=== PATIENT | male | born 1990 | race Caucasian/White ===

== ENCOUNTER → 2018-12-10 | Outpatient (CLI) | payer OTHER ==
--- NOTE | 2018-12-10 09:13 | RADIOLOGY REPORT (SQ) ---
EXAM DESCRIPTION: T SPINE AP/LAT COMPLETED DATE/TIME: 12/10/2018 9:04 am REASON FOR STUDY: PAIN IN THORACIC SPINE; UPPER AND LOWER BACK PAIN; WHEEZING R06.2 WHEEZING M54.6 PAIN IN THORACIC SPINE COMPARISON: None. NUMBER OF VIEWS: Two views. TECHNIQUE: AP and lateral radiographic images acquired of the thoracic spine. LIMITATIONS: None. FINDINGS: MINERALIZATION: Normal. ALIGNMENT: Scoliosis of the thoracic spine, apex to the right. VERTEBRAE: No fracture or bone lesion. Maintained height, normal segmentation. DISCS: No significant loss of height or significant narrowing. No large osteophytes. HARDWARE: None in the spine. MEDIASTINUM AND SOFT TISSUES: Normal heart size and aortic contour. No soft tissue abnormality. VISUALIZED LUNG KAM: Clear. OTHER: No other significant finding. IMPRESSION: 1. No acute osseous findings. 2. Mild dextroconvex scoliosis of the thoracic spine. TECHNICAL DOCUMENTATION: JOB ID: [id number] [employer]- All Rights Reserved Reading location - IP/workstation name: [email or web address]
--- NOTE | 2018-12-10 09:16 | RADIOLOGY REPORT (SQ) ---
EXAM DESCRIPTION: LUMBAR SPINE 2 VIEWS COMPLETED DATE/TIME: 12/10/2018 9:04 am REASON FOR STUDY: PAIN IN THORACIC SPINE; UPPER AND LOWER BACK PAIN; WHEEZING R06.2 WHEEZING M54.6 PAIN IN THORACIC SPINE COMPARISON: None. NUMBER OF VIEWS: Two views. TECHNIQUE: AP and lateral radiographic images acquired of the lumbar spine. LIMITATIONS: None. FINDINGS: MINERALIZATION: Normal. SEGMENTATION: Normal. No transitional anatomy. ALIGNMENT: Slight anterolisthesis of L5 on S1 is suggested. VERTEBRAE: Maintained height. No fracture or worrisome bone lesion. DISCS: Preserved height. No significant osteophytes or end plate irregularity. POSTERIOR ELEMENTS: Pedicles and facets are intact. No pars defect or posterior arch defects. HARDWARE: None in the spine. PARASPINAL SOFT TISSUES: Normal. PELVIS: Intact as visualized. No fractures or worrisome bone lesions. SI joints intact. OTHER: No other significant finding. IMPRESSION: 1. No acute osseous findings. 2. Slight anterolisthesis of L5 on S1 is suggested. TECHNICAL DOCUMENTATION: JOB ID: [id number] [email or web address]- All Rights Reserved Reading location - IP/workstation name: [email or web address]
[2018-12-10 09:57] LABS: ABSOLUTE EOSINOPHILS # (AUTO) 0.1 10^3/uL (0.0-0.6); ABSOLUTE LYMPHOCYTES (AUTO) 2.5 10^3/uL (0.5-4.7); ABSOLUTE MONOCYTES (AUTO) 0.5 10^3/uL (0.1-1.4); ABSOLUTE NEUT (AUTO) 4.2 10^3/uL (1.7-8.2); BASOPHILS % (AUTO) 0.2 % (0-2); EOSINOPHILS % (AUTO) 0.8 % (0-6); HEMATOCRIT 43.1 % (37.9-51.0); LYMPHOCYTES % (AUTO) 34.2 % (13-45); MEAN CORPUSCULAR HEMOGLOBIN 31.3 pg (27.0-33.4); MEAN CORPUSCULAR HGB CONC 34.8 g/dL (32.0-36.0); MEAN CORPUSCULAR VOLUME 90 fl (80-97); MONOCYTES % (AUTO) 7.2 % (3-13); PLATELET COUNT 301 10^3/uL (150-450); RED BLOOD COUNT 4.78 10^6/uL (4.35-5.55); RED CELL DISTRIBUTION WIDTH 13.4 % (11.5-14.0); SEGMENTED NEUTROPHILS % (AUTO) 57.6 % (42-78); TOTAL CELLS COUNTED % (AUTO) 100 %; WHITE BLOOD COUNT 7.2 10^3/uL (4.0-10.5)
[2018-12-10 10:32] LABS: ALANINE AMINOTRANSFERASE 29 U/L (21-72); ALBUMIN 4.2 g/dL (3.5-5.0); ALKALINE PHOSPHATASE 68 U/L (38-126); ANION GAP 10 (5-19); ASPARTATE AMINO TRANSFERASE 26 U/L (17-59); BILIRUBIN,DIRECT 0.3 mg/dL (0.0-0.4); BILIRUBIN,TOTAL 0.6 mg/dL (0.2-1.3); BLOOD UREA NITROGEN 11 mg/dL (7-20); CALCIUM 9.3 mg/dL (8.4-10.2); CARBON DIOXIDE 28 mmol/L (22-30); CHLORIDE 104 mmol/L (98-107); GLUCOSE 74 mg/dL (75-110); POTASSIUM 4.4 mmol/L (3.6-5.0); SODIUM 141.6 mmol/L (137-145); TOTAL PROTEIN 6.8 g/dL (6.3-8.2); TRIGLYCERIDES 207 mg/dL (<150)
[2018-12-10 10:42] LABS: DIRECT LDL 123 mg/dL (<100)
[2018-12-10 10:45] LABS: VLDL CHOLESTEROL 41.4 mg/dL (10-31)
== END ==
LOC: CCC 08:37
DX: Z00.00 Encounter for general adult medical examination without abnormal findings (principal); M41.84 Other forms of scoliosis, thoracic region; M54.6 Pain in thoracic spine; R06.2 Wheezing
CPT/HCPCS: 36415; 72070; 72100; 80053; 80061; 83036; 84443; 85025

== ENCOUNTER 2018-12-28 14:23 | Emergency (ER) | payer SELFPAY ==
[2018-12-28] MEDS ORDERED: IBUPROFEN 800 MG TABLET PO ONE (16:20)
--- NOTE | 2018-12-28 16:24 | ER Document Report ---
HPI - HPI Patient complains to provider of: Right ankle pain Time Seen by Provider: 12/28/18 16:18 Onset: Just prior to arrival Onset/Duration: Sudden Quality of pain: Achy Severity: Severe Pain Level: 5 Context: Patient presents emergency department with right ankle pain. Reports he fell down a couple steps rolled his ankle. Reports he was unable to walk afterwards. Has not taken anything for pain. Denies past medical history of injury to the ankle. Associated Symptoms: None Exacerbated by: Walking Relieved by: Denies Similar symptoms previously: No Recently seen / treated by doctor: No - MUSCULOSKELETAL Musculoskeletal: REPORTS: Extremity pain - R ankle Past Medical History - General Information source: Patient - Social History Smoking Status: Current Every Day Smoker Cigarette use (# per day): Yes Chew tobacco use (# tins/day): No Frequency of alcohol use: None Drug Abuse: None Lives with: Family Family History: None Patient has suicidal ideation: No Patient has homicidal ideation: No - Medical History Medical History: Negative Renal/ Medical History: Denies: Hx Peritoneal Dialysis Past Surgical History: Reports: Hx Herniorrhaphy, 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 IN LAST 30 DAYS: No - HEENT HEENT: Atraumatic, Normocephalic - NECK Neck: Supple - RESPIRATORY Respiratory: No Respiratory Distress - MUSCULOSKELETAL/EXTREMETIES Musculoskeletal/Extremeties: Tender - Right ankle tender to palpation lateral swelling good pedal pulse good cap refill - NEURO Level of Consciousness: Awake, Alert, Appropriate Motor/Sensory: No Motor Deficit - DERM Integumentary: Warm, Dry Adult Front & Back Diagram: 1 - +swelling, reports entire ankle pain Course - Re-evaluation Re-evalutation: 12/28/18 18:59 negative x-ray. Pt was instructed on ankle stirrup splint crutches rest ice if continued to have pain come back to the emergency department for repeat x-ray after swelling is gone down. Verbalized understanding to all instructions. Dictation of this chart was performed using voice recognition software; therefore, there may be some unintended grammatical errors. - Vital Signs Vital signs: Temp Pulse Resp BP Pulse Ox 99.4 F 109 H 20 129/79 H 97 12/28/18 14:40 12/28/18 14:40 12/28/18 14:40 12/28/18 14:40 12/28/18 14:40 - Diagnostic Test Radiology reviewed: Image reviewed, Reports reviewed - EXAM DESCRIPTION: ANKLE RIGHT COMPLETE COMPLETED DATE/TIME: 12/28/2018 4:42 pm REASON FOR STUDY: ankle pain, injury, swelling, COMPARISON: None. NUMBER OF VIEWS: Three views. TECHNIQUE: AP, lateral, and oblique radiographic images acquired of the right ankle. LIMITATIONS: None. FINDINGS: MINERALIZATION: Normal. BONES: No acute fracture or dislocation. No worrisome bone lesions. JOINTS: No effusions. SOFT TISSUES: Soft tissue swelling over the lateral malleolus. OTHER: No other significant finding. IMPRESSION: No fracture or dislocation of the right ankle. Soft tissue swelling over the lateral malleolus. Procedures - Immobilization Right Ankle Pre-Proc Neuro Vasc Exam: Normal Immobilizer type: Ankle stirrup Performed by: PCT Post-Proc Neuro Vasc Exam: Unchanged from pre-exam Discharge - Discharge Clinical Impression: Right ankle injury Condition: Stable Disposition: HOME, SELF-CARE Instructions: Ankle Stirrup Splint ([facility]), Use of Crutches ([facility]), Ice & Elevation ([facility]), Oral Narcotic Medication ([facility]) Additional Instructions: *You have been evaluated for a right ankle injury *The xray did not show an acute fracture *Rest/Ice/Elevate your ankle *Maintain the splint, Use your crutches for the next 5 days *Follow up with orthopedics for repeat xray within one week as indicated or return to the Emergency Department for continued pain *Take norco for the acute pain as prescribed *Return to ED for worsening condition, changes, needs Prescriptions: Hydrocodone/Acetaminophen [[place] 5-325 mg Tablet] 1 tab PO QID #10 tablet Forms: Return to Work Referrals: [facility] [Primary Care Provider] - Follow up as needed [facility] [Provider Group] - Follow up in 3-5 days
[2018-12-28] MEDS ORDERED: OXYCODONE-ACETAMINOPHEN 5-325 MG TABLET PO ONE (17:17)
--- NOTE | 2018-12-28 17:21 | RADIOLOGY REPORT (SQ) ---
EXAM DESCRIPTION: ANKLE RIGHT COMPLETE COMPLETED DATE/TIME: 12/28/2018 4:42 pm REASON FOR STUDY: ankle pain, injury, swelling, COMPARISON: None. NUMBER OF VIEWS: Three views. TECHNIQUE: AP, lateral, and oblique radiographic images acquired of the right ankle. LIMITATIONS: None. FINDINGS: MINERALIZATION: Normal. BONES: No acute fracture or dislocation. No worrisome bone lesions. JOINTS: No effusions. SOFT TISSUES: Soft tissue swelling over the lateral malleolus. OTHER: No other significant finding. IMPRESSION: No fracture or dislocation of the right ankle. Soft tissue swelling over the lateral ma lleolus. TECHNICAL DOCUMENTATION: JOB ID: [id number] [employer]- All Rights Reserved Reading location - IP/workstation name: [email or web address]
[2018-12-28 17:56] VITALS: BP 136/87
== END 2018-12-28 17:52 | disposition home or self-care (01) ==
LOC: ER 14:23
PROC: 2W3QX1Z Immobilization of Right Lower Leg using Splint (ICD-10-PCS; principal; 2018-12-28)
DX: S99.911A Unspecified injury of right ankle, initial encounter (principal); M25.571 Pain in right ankle and joints of right foot; F17.210 Nicotine dependence, cigarettes, uncomplicated; W10.9XXA Fall (on) (from) unspecified stairs and steps, initial encounter
CPT/HCPCS: 99283; 73610; 29515; L1902

== ENCOUNTER 2018-12-31 12:36 | Emergency (ER) | payer SELFPAY ==
[2018-12-31 12:42] VITALS: BP 145/76
[2018-12-31] MEDS ORDERED: HYDROCODONE/ACETAMINOPHEN 5-325 MG TABLET PO ONE (13:21)
[2018-12-31] MEDS ORDERED: ACETAMINOPHEN 325 MG TABLET PO ONE (13:21)
[2018-12-31] MEDS ORDERED: IBUPROFEN 600 MG TABLET PO ONE (13:21)
--- NOTE | 2018-12-31 13:21 | ER Document Report ---
HPI - HPI Time Seen by Provider: 12/31/18 12:46 Pain Level: 5 Context: Patient is a 28-year-old male who presents the emergency department with right ankle pain and swelling. On Sunday he fell down a couple of steps and rolled his ankle. His x-ray at that time was negative for any acute fracture. He was to follow-up with the [facility] and he called and they said that he needs to follow-up here in the emergency department to help with his orthoped ic follow-up referral. - ROS Notes: REVIEW OF SYSTEMS: CONSTITUTIONAL : Denies recent illness. Denies recent unintentional weight loss. Denies fever, chills, or sweats. EENT: Denies eye, ear, throat, or mouth pain, discharge, or symptoms. Denies nasal or sinus congestion. CARDIOVASCULAR: Denies chest pain. RESPIRATORY: Denies shortness of breath, cough, congestion, difficulty breathing, or wheezing. GASTROINTESTINAL: Denies nausea, vomiting, and diarrhea. Denies abdominal pain. Denies constipation. GENITOURINARY: Denies difficulty urinating, burning, blood in urine, urgency or frequency. MUSCULOSKELETAL: See HPI SKIN: Denies rash, itchiness, or lesions HEMATOLOGIC : Denies easy bruising or bleeding. LYMPHATIC: Denies swollen, painful, enlarged glands. NEUROLOGICAL: Denies no numbness or tingling denies weakness. Denies headache. Denies altered mental status. Denies alteration in speech. PSYCHIATRIC: Denies stress, anxiety, alteration in sleep patterns, or depression. All other systems reviewed and negative. 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 HEAD: Normocephalic, atraumatic. EYES: PERRL, conjunctiva normal, all extraocular movements intact, sclera nonicteric ENT: Moist mucous membranes. NECK: Supple, no noticeable swelling, redness, rash. Normal range of motion. LUNGS: Equal breath sounds bilaterally and clear to auscultation. No wheezes rales or rhonchi. CARDIOVASCULAR: S1-S2, regular rate, regular rhythm. Radial pulses 2+, normal. ABDOMEN: Normoactive bowel sounds. Soft, nontender, no guarding, no rebound tenderness, and no masses palpated. EXTREMITIES: Edema and erythema noted to right ankle and foot NEUROLOGICAL: Moves all extremities upon command. Strength 5/5 in all extremities, except right ankle. PSYCH: Normal mood, normal affect. SKIN: Warm, dry. No rash, lesions, ulcerations noted. Normal skin turgor. - INFECTION CONTROL TRAVEL OUTSIDE OF THE [place] IN LAST 30 DAYS: No Course - Re-evaluation Re-evalutation: 12/31/18 14:45 The patient has a minimal avulsion fracture to the lateral malleolus. Patient will be placed in an Silver wrap to help with the swelling. He will continue using his ankle stirrup to protect his ankle. Follow-up precautions were given. Verbal discharge instructions were given to the patient. They verbalized understanding. They are stable for discharge. - Vital Signs Vital signs: Temp Pulse Resp BP Pulse Ox 98.1 F 99 18 145/76 H 96 12/31/18 12:41 12/31/18 12:41 12/31/18 12:41 12/31/18 12:41 12/31/18 12:41 Discharge - Discharge Clinical Impression: Avulsion fracture of lateral malleolus Qualifiers: Encounter type: initial encounter Fracture type: closed Laterality: right Qualified Code(s): S82.61XA - Displaced fracture of lateral malleolus of right fibula, initial encounter for closed fracture Condition: Stable Disposition: HOME, SELF-CARE Additional Instructions: You are seen today in the emergency department for left ankle and foot pain. You do have a fracture at your ankle. Please follow-up with orthopedics in regards to this visit. You are also being provided an Silver wrap. These elevate your foot, wear your Silver wrap, apply ice, and rest as much as you can. Please use the crutches you were given from your previous visit. Please add ibuprofen 600 mg every 6 hours for your pain. You can take Tylenol 650 mg every 6 hours for your pain. The pain medication you are being provided, please only take this as needed. Prescriptions: Hydrocodone/Acetaminophen [[place] 5-325 mg Tablet] 1 tab PO QIDP PRN #10 tablet PRN Reason: Forms: Return to Work Referrals: [facility] [Primary Care Provider] - Follow up as needed SUHAIL SHAW MD [ACTIVE STAFF] - Follow up in 3-5 days
--- NOTE | 2018-12-31 14:27 | RADIOLOGY REPORT (SQ) ---
EXAM DESCRIPTION: ANKLE RIGHT COMPLETE COMPLETED DATE/TIME: 12/31/2018 2:10 pm REASON FOR STUDY: increased pain/swelling COMPARISON: None. NUMBER OF VIEWS: Three views. TECHNIQUE: AP, lateral, and oblique radiographic images acquired of the right ankle. LIMITATIONS: None. FINDINGS: MINERALIZATION: Normal. BONES: Minimal avulsion from the lateral malleolus. Mortise is intact. JOINTS: No effusions. SOFT TISSUES: Marked soft tissue swelling. No foreign body. OTHER: No other significant finding. IMPRESSION: Minimal lateral malleolar avulsion. Extensive soft tissue swelling. TECHNICAL DOCUMENTATION: JOB ID: [id number] [employer]- All Rights Reserved Reading location - IP/workstation name: [email or web address]
--- NOTE | 2018-12-31 14:28 | RADIOLOGY REPORT (SQ) ---
EXAM DESCRIPTION: FOOT RIGHT COMPLETE COMPLETED DATE/TIME: 12/31/2018 2:10 pm REASON FOR STUDY: swelling/pain COMPARISON: None. NUMBER OF VIEWS: Three views. TECHNIQUE: AP, lateral and oblique radiographic images acquired of the right foot. LIMITATIONS: None. FINDINGS: MINERALIZATION: Normal. BONES: No acute fracture or dislocation. No worrisome bone lesions. JOINTS: No effusions. SOFT TISSUES: No soft tissue swelling. No foreign body. OTHER: No other significant finding. IMPRESSION: NEGATIVE STUDY OF THE RIGHT FOOT. NO RADIOGRAPHIC EVIDENCE OF ACUTE INJURY. TECHNICAL DOCUMENTATION: JOB ID: [id number] [employer]- All Rights Reserved Reading location - IP/workstation name: [email or web address]
== END 2018-12-31 14:49 | disposition home or self-care (01) ==
LOC: ER 12:36
DX: S82.61XA Displaced fracture of lateral malleolus of right fibula, initial encounter for closed fracture (principal); M25.571 Pain in right ankle and joints of right foot; W10.9XXA Fall (on) (from) unspecified stairs and steps, initial encounter; F17.200 Nicotine dependence, unspecified, uncomplicated
CPT/HCPCS: 99283

== ENCOUNTER 2019-01-04 12:46 | Emergency (ER) | payer SELFPAY ==
[2019-01-04] MEDS ORDERED: HYDROCODONE/ACETAMINOPHEN 5-325 MG TABLET PO ONE (13:08)
--- NOTE | 2019-01-04 13:08 | ER Document Report ---
HPI - HPI Patient complains to provider of: Ankle pain Time Seen by Provider: 01/04/19 13:00 Onset: Other Onset/Duration: Persistent Severity: Severe Pain Level: 5 Context: Patient presents emergency department with complaints of right ankle pain. Patient reports on December 28 he was evaluated for a fracture but the x-ray was read negative. He returned 3 days later and they did another x-ray which showed an avulsion fracture. The next day he saw Dr. Gonzales and was placed in an air boot. He reports he has been keeping his leg up using crutches but is having more pain. Denies bumping or falling since he had the Aircast boot placed. Reports Dr. Gonzales prescribed him Mobic but is not helping the pain. No other symptoms such as fever vomiting diarrhea. Associated Symptoms: None Exacerbated by: Denies Relieved by: Denies Similar symptoms previously: Yes Recently seen / treated by doctor: Yes - EENT EENT: DENIES: Sore Throat - CARDIOVASCULAR Cardiovascular: DENIES: Chest pain - GASTROINTESTINAL Gastrointestinal: DENIES: Abdominal Pain - MUSCULOSKELETAL Musculoskeletal: REPORTS: Extremity pain - right foot/ankle Past Medical History - General Information source: Patient - Social History Smoking Status: Current Every Day Smoker Chew tobacco use (# tins/day): No Frequency of alcohol use: None Drug Abuse: None Lives with: Family Family History: None Patient has suicidal ideation: No Patient has homicidal ideation: No - Medical History Medical History: Negative Renal/ Medical History: Denies: Hx Peritoneal Dialysis Past Surgical History: Reports: Hx Herniorrhaphy, 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 IN LAST 30 DAYS: No - HEENT HEENT: Atraumatic, Normocephalic - NECK Neck: Supple - RESPIRATORY Respiratory: No Respiratory Distress - CARDIOVASCULAR Cardiovascular: Regular Rate - MUSCULOSKELETAL/EXTREMETIES Musculoskeletal/Extremeties: Tender - right lateral ankle ttp, foot slightly swollen, good cap refill, good pedal pulse - NEURO Level of Consciousness: Awake, Alert, Appropriate Motor/Sensory: No Motor Deficit - DERM Integumentary: Warm, Dry Course - Re-evaluation Re-evalutation: 01/04/19 CT results showed avulsion fracture. No further injuries. Patient was instructed on results. He reapplied his own Aircast boot. He was instructed to follow-up with Dr. Gonzales on Sunday. Prescribed some King for pain. He verbalized understanding to all instructions. Dictation of this chart was performed using voice recognition software; therefore, there may be some unintended grammatical errors. - Vital Signs Vital signs: Temp Pulse Resp BP Pulse Ox 98.2 F 86 18 128/76 H 97 01/04/19 12:51 01/04/19 12:51 01/04/19 12:51 01/04/19 12:51 01/04/19 12:51 - Diagnostic Test Radiology reviewed: Image reviewed, Reports reviewed - EXAM DESCRIPTION: CT RT LOWER EXTREMITY WITHOUT COMPLETED DATE/TIME: 01/04/2019 1:18 pm REASON FOR STUDY: hx fx increased pain COMPARISON: Right ankle films 12/28/2018, 12/31/2018 Right foot three views 12/31/2018 TECHNIQUE: CT scan of the right ankle performed without intravenous or oral contrast. Images reviewed with soft tissue and bone windows. Reconstructed coronal and sagittal MPR images reviewed. All images stored on PACS. All CT scanners at this facility use dose modulation, iterative reconstruction, and/or weight based dosing when appropriate to reduce radiation dose to as low as reasonably achievable (ALARA). [facility]: Dose Right [facility]: CareDose [facility]: Dose Right [facility]: Teradose 4D [facility]: [employer] RADIATION DOSE: CT Rad equipment meets quality standard of care and radiation dose reduction techniques were employed. CTDIvol: 4.1 mGy. DLP: 92 mGy-cm. mGy. LIMITATIONS: None. FINDINGS: Non contrasted CT of the right ankle was performed. Again, 2 tiny avulsion fragments are present along the lateral aspect of the talus and calcaneus from fibulocalcaneal ligament avulsion. This is best shown on coronal image 29, axial image 50. This correlates with plain films from 12/31/2018. No disruption of the ankle mortise. No other fractures are identified. There is lateral soft tissue swelling. Tiny plantar calcaneal spur. L IMPRESSION: 2 tiny avulsion fragments are present along the lateral aspect of the talus and calcaneus from Fibulocalcaneal ligament avulsion. This is unchanged from plain films 12/31/2018. TECHNICAL DOCUMENTATION: JOB ID: [id number] Quality ID # [id number]: Final reports with documentation of one or more dose reduction techniques (e.g., Automated exposure control, adjustment of the mA and/or kV according to patient size, use of iterative reconstruction technique) 2010 [employer]- All Rights Reserved Reading location - IP/workstation name: [email or web address] Dictated by: JEEVAN SUNSHINE MD [id number] CC: PRASANNA GONZALES NP > Discharge - Discharge Clinical Impression: Avulsion fracture of lateral malleolus Qualifiers: Encounter type: sequela Fracture type: closed Laterality: right Qualified Code(s): S82.61XS - Displaced fracture of lateral malleolus of right fibula, sequela Condition: Stable Disposition: HOME, SELF-CARE Instructions: Avulsion Fracture of the Ankle ([facility]), Oral Narcotic Medication ([facility]) Additional Instructions: *You have been evaluated for an avulsion fracture of the right ankle *Maintain the boot *Use your crutches *Follow up with Dr. Gonzales on Sunday for recheck *Take medication as prescribed- take norco for acute pain *Return to ED for worsening condition, changes, needs Prescriptions: Hydrocodone/Acetaminophen [King 5-325 mg Tablet] 1 tab PO QID #15 tablet Forms: Return to Work Referrals: [facility] [Primary Care Provider] - Follow up as needed
--- NOTE | 2019-01-04 13:49 | RADIOLOGY REPORT (SQ) ---
EXAM DESCRIPTION: CT RT LOWER EXTREMITY WITHOUT COMPLETED DATE/TIME: 01/04/2019 1:18 pm REASON FOR STUDY: hx fx increased pain COMPARISON: Right ankle films 12/28/2018, 12/31/2018 Right foot three views 12/31/2018 TECHNIQUE: CT scan of the right ankle performed without intravenous or oral contrast. Images review ed with soft tissue and bone windows. Reconstructed coronal and sagittal MPR images reviewed. All i mages stored on PACS. All CT scanners at this facility use dose modulation, iterative reconstruction, and/or weight based d osing when appropriate to reduce radiation dose to as low as reasonably achievable (ALARA). [facility]: Dose Right [facility]: CareDose [facility]: Dose Right [facility]: Teradose 4D [facility]: [employer] RADIATION DOSE: CT Rad equipment meets quality standard of care and radiation dose reduction techniq ues were employed. CTDIvol: 4.1 mGy. DLP: 92 mGy-cm. mGy. LIMITATIONS: None. FINDINGS: Non contrasted CT of the right ankle was performed. Again, 2 tiny avulsion fragments are present along the lateral aspect of the talus and calcaneus from fibulocalcaneal ligament avulsion. This is best shown on coronal image 29, axial image 50. This co rrelates with plain films from 12/31/2018. No disruption of the ankle mortise. No other fractures are identified. There is lateral soft tissue swelling. Tiny plantar calcaneal spur. L IMPRESSION: 2 tiny avulsion fragments are present along the lateral aspect of the talus and calcaneu s from Fibulocalcaneal ligament avulsion. This is unchanged from plain films 12/31/2018. TECHNICAL DOCUMENTATION: JOB ID: [id number] Quality ID # [id number]: Final reports with documentation of one or more dose reduction techniques (e.g., Au tomated exposure control, adjustment of the mA and/or kV according to patient size, use of iterative reconstruction technique) 2010 [employer]- All Rights Reserved Reading location - IP/workstation name: [email or web address]
[2019-01-04 14:05] VITALS: BP 128/79
== END 2019-01-04 14:04 | disposition home or self-care (01) ==
LOC: ER 12:46
DX: S82.61XS Displaced fracture of lateral malleolus of right fibula, sequela (principal); M25.571 Pain in right ankle and joints of right foot; X58.XXXS Exposure to other specified factors, sequela; F17.200 Nicotine dependence, unspecified, uncomplicated
CPT/HCPCS: 99283

== ENCOUNTER 2019-01-09 14:21 | Emergency (ER) | payer SELFPAY ==
[2019-01-09 14:29] VITALS: BP 137/77
[2019-01-09] MEDS ORDERED: HYDROCODONE/ACETAMINOPHEN 5-325 MG TABLET PO ONE (15:11)
--- NOTE | 2019-01-09 15:15 | ER Document Report ---
HPI - HPI Time Seen by Provider: 01/09/19 14:53 Pain Level: 4 Context: Patient is a 28-year-old male who presents to the emergency department with a chief complaint of right ankle pain. Patient states a few weeks ago he was diagnosed with a avulsion fracture to the right ankle. Patient states he has seen Dr. Gonzales since then and was placed in a hard walking boot. Patient states he was given anti-inflammatories and was told to follow-up in 1 month. Patient states he does have some swelling to the right ankle which has improved since the original injury. She states around 1 PM this afternoon he was walking back into his house from smoking a cigarette when he tripped up some wooden stairs. Patient states he did strike the front of his left ankle. Patient states he did have the hard walking boot on at that time. The walking boot does cover the ankle and anterior and posterior foot. Patient states since then he has been extreme pain. She denies any new bruising or new swelling. - CONSTITUTIONAL Constitutional: DENIES: Fever, Chills - EENT EENT: DENIES: Sore Throat, Ear Pain, Eye problems - NEURO Neurology: DENIES: Headache, Weakness, Vision blurred, Dizzinesss / Vertigo - CARDIOVASCULAR Cardiovascular: DENIES: Chest pain - RESPIRATORY Respiratory: DENIES: Trouble Breathing, Coughing - GASTROINTESTINAL Gastrointestinal: DENIES: Abdominal Pain, Black / Bloody Stools - URINARY Urinary: DENIES: Dysuria, Urgency, Frequency - MUSCULOSKELETAL Musculoskeletal: REPORTS: Extremity pain - RIGHT ANKLE Past Medical History - General Information source: Patient - Social History Smoking Status: Current Every Day Smoker Chew tobacco use (# tins/day): No Frequency of alcohol use: None Drug Abuse: None Family History: None Patient has suicidal ideation: No Patient has homicidal ideation: No - Past Medical History Cardiac Medical History: Reports: None Pulmonary Medical History: Reports: None EENT Medical History: Reports: None Neurological Medical History: Reports: None Endocrine Medical History: Reports: None Renal/ Medical History: Reports: None. 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 HEAD: Atraumatic, normocephalic. EYES: Pupils equal round and reactive to light, extraocular movements intact, sclera anicteric, conjunctiva are normal. ENT: TMs normal, nares patent, oropharynx clear without exudates. Moist mucous membranes. NECK: Normal range of motion, supple without lymphadenopathy or JVD. LUNGS: Breath sounds clear to auscultation bilaterally and equal. No wheezes rales or rhonchi. HEART: Regular rate and rhythm without murmurs, rubs or gallops. ABDOMEN: Soft, nontender, normoactive bowel sounds. No guarding, no rebound. No masses appreciated. BACK: No cervical, thoracic, lumbar midline tenderness. No saddle anesthesia, normal distal neurovascular exam. GENITOURINARY: Deferred. EXTREMITIES: Normal range of motion, strong +2 right dorsalis pedis pulse, + 2 posterior tibial pulse, small amount of edema noted to the medial and lateral aspect of the right ankle. There is no ecchymosis or erythema. PROM performed with pain. She does have a hard cushioned walking boot in place. This was removed for evaluation of the injury. NEUROLOGICAL: Cranial nerves II through XII grossly intact. Normal speech, normal gait. PSYCH: Normal mood, normal affect. SKIN: Warm, Dry, normal turgor, no rashes or lesions noted. - INFECTION CONTROL TRAVEL OUTSIDE OF THE [place] IN LAST 30 DAYS: No Course - Re-evaluation Re-evalutation: 01/09/19 15:15 Patient has a known avulsion fracture to the right ankle in which she does take NSAIDs and wears a hard walking boot for comfort. Since patient did have a new injury and is complaining of worsening ankle pain I will obtain an x-ray. If there is no injury I plan to keep the patient in his walking boot and to follow- up with Dr. Gonzales. Continue NSAIDs as previously prescribed. I will give patient pain medication while in the emergency department. 01/09/19 16:00 Patient's x-ray shows an avulsion fracture of the right ankle which was present in previous x-ray and there is no new acute finding. Patient will continue using the walking boot, taking the prescribed NSAIDs by Dr. Gonzales and close follow up with Orthopedic. - Vital Signs Vital signs: Temp Pulse Resp BP Pulse Ox 98.1 F 102 H 18 137/77 H 98 01/09/19 14:28 01/09/19 14:28 01/09/19 14:28 01/09/19 14:28 01/09/19 14:28 Discharge - Discharge Clinical Impression: Avulsion fracture of ankle Qualifiers: Encounter type: subsequent encounter Fracture type: closed Laterality: right Fracture healing: with routine healing Qualified Code(s): S82.891D - Other fracture of right lower leg, subsequent encounter for closed fracture with routine healing Condition: Stable Disposition: HOME, SELF-CARE Additional Instructions: Today you were seen in the emergency department for a ankle reinjury. The repeat x-ray showed an avulsion injury of the right malleolus which was seen in the previous imaging on December 31. There does not appear to be any significant changes lateral. There is soft tissue swelling noted. Please continue to wear the hard walking boot that was provided by your orthopedic as well as taking the anti-inflammatories. Please return to the emergency department for worsening signs and symptoms such as new bruising, significant increase in swelling, redness to the foot or ankle that starts to streak up the leg or any other concerning signs or symptoms. Avulsion Fracture of the Ankle There is a small chip fracture in your ankle. This fracture was caused by stretching the joint ligaments, which pulled off a small piece of bone. This injury is treated much the same as a severe sprain. At first, you should elevate, rest, and apply ice packs to the leg. Often, only an ankle brace or tape is necessary while the chip fracture heals. Sometimes a chip fracture of this type requires a cast or walking boot. The treatment plan may change, depending on how your ankle progresses. Chip fractures usually do not fuse back onto the bone, but rather scar down to the bone surface. You will most likely see this bone fragment on future x-ra ys. It's important that you follow the treatment program as outlined for now, then follow up for re-evaluation as scheduled. Call the doctor or return at once if pain or swelling becomes severe, or if you develop other unusual symptoms. Referrals: [facility] [NO LOCAL MD] - Follow up as needed
--- NOTE | 2019-01-09 15:52 | RADIOLOGY REPORT (SQ) ---
EXAM DESCRIPTION: ANKLE RIGHT COMPLETE COMPLETED DATE/TIME: 01/09/2019 3:36 pm REASON FOR STUDY: reinjured right ankle COMPARISON: 12/31/2018 NUMBER OF VIEWS: Three views. TECHNIQUE: AP, lateral, and oblique radiographic images acquired of the right ankle. LIMITATIONS: None. FINDINGS: MINERALIZATION: Normal. BONES: Avulsion injury of the lateral malleolus is again noted. It did not appear significantly hyatt ged from prior study. No additional findings. JOINTS: No effusions. SOFT TISSUES: There is soft tissue swelling. OTHER: No other significant finding. IMPRESSION: Avulsion injury of the lateral malleolus is again noted. No significant changes from pr ior study. Soft tissue swelling is again noted. TECHNICAL DOCUMENTATION: JOB ID: [id number] [employer]- All Rights Reserved Reading location - IP/workstation name: [email or web address]
== END 2019-01-09 16:07 | disposition home or self-care (01) ==
LOC: ER 14:21
DX: S82.891D Other fracture of right lower leg, subsequent encounter for closed fracture with routine healing (principal); M25.571 Pain in right ankle and joints of right foot; M79.89 Other specified soft tissue disorders; W18.40XD Slipping, tripping and stumbling without falling, unspecified, subsequent encounter; F17.210 Nicotine dependence, cigarettes, uncomplicated
CPT/HCPCS: 99283

== ENCOUNTER 2019-02-15 15:16 | Emergency (ER) | payer SELFPAY ==
--- NOTE | 2019-02-15 16:28 | ER Document Report ---
HPI - HPI Patient complains to provider of: ruq abd pain Time Seen by Provider: 02/15/19 16:06 Quality of pain: Sharp Severity: Moderate Pain Level: 3 Context: 28 yr old male pt with the listed pmh, here for ruq abdominal pain for 1 day shortly after eating buranny villalpando. states he was helping someone to move furniture after eating and the pain came on. denies any trauma or injury or moving awkwardly or pulling anything to account for his sx. no hx of diabetes or asthma. normal bms. no uti sx. no testicular pain/swelling, penile dc/rash/lesions, or concerns for stds. denies swelling or hx of hernias. 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 no recent abx or steroids. hasn't taken anything for sx. no hx of gerd, gb dz, pancreatitis, gi bleed, ulcers, ibs, or crohns. no hx of this before. no sick contacts. no uri sx. no rash. no excessive nsaid use or etoh. no recent illness. pain is worse with eating. denies changes in color or caliber of stool. no other associated sx. Associated Symptoms: None Exacerbated by: Food Relieved by: Remaining still Similar symptoms previously: No Recently seen / treated by doctor: No - ROS Systems Reviewed and Negative: Yes All other systems reviewed and negative - to include 10 systems, unless mentioned in the hpi - DERM Skin Color: Normal Past Medical History - General Information source: Patient - Social History Smoking Status: Current Every Day Smoker Frequency of alcohol use: None Drug Abuse: None Family History: None Patient has suicidal ideation: No Patient has homicidal ideation: No Endocrine Medical History: Reports: None Renal/ Medical History: Denies: Hx Kidney Stones, Hx Peritoneal Dialysis GI Medical History: Reports: None Past Surgical History: Reports: Hx Bowel Surgery - 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 Pleasant, mildly obese young male, smiling, speaking in full sentences, easily sitting up, in no sign of resp distress, nontoxic, appears uncomfortable but not toxic. VITALS: reviewed, see vital signs table. HEAD: normocephalic. atraumatic. no loera signs. no raccoon eyes. EYES: PERRL, EOMI, (-)scleral icterus. NOSE: no_nasal_discharge. MOUTH: (-)decreased moisture. THROAT: no_tonsilar_inflammation/hypertrophy/exudate. no lymphadenopathy NECK: supple, no_neck_tenderness, full rom. full strength. no meningeal signs. BACK: no_back_tenderness. CHEST_WALL: no_chest_tenderness. LUNGS: no_wheezing, (-)accessory muscle use, good air exchange bilateral. HEART: normal_rate, normal_rhythm,, ABDOMEN: normal_BS, soft, abdomen-diffuse, mild-mod ttp in the ruq, (- )guarding, (-)rebound, no distension or peritoneal signs. questionable murphys. neg mcburneys. neg heel strike. neg obturator. neg psoas. neg rovsign. no cva tenderness GENITALS: deferred RECTAL: deferred EXTREMITIES: strength 5/5 in all_extremities, good pulses in all_extremities, no_edema, no_swelling\tenderness. full rom. normal gait. brisk cap refill. good hand senior net developer. SKIN: warm, dry, good_color, no rash. no grossly visible overlying skin hyatt ges to suggest trauma unless otherwise noted. NEURO: motor_intact, sensory_intact. cranial nerves 2-12 intact, MENTAL_STATUS: normal_affect, speech_clear, oriented_X_3, responds_appropriately to questions. - INFECTION CONTROL TRAVEL OUTSIDE OF THE [place] IN LAST 30 DAYS: No Course - Re-evaluation Re-evalutation: pt here for for some ruq abd pain after eating [employer]. labs notable for a mild leukocytosis but were otherwise neg. exam concerning for gb so a gb us was done and was neg per rad and reviewed by myself. sx could be from biliary colic. informed pt he may benefit from a hida scan to further investigate and work up his sx via gi. he responded well to tx listed. serial abd exams remain benign. advised bland diet. otc meds for pain. drink plenty of fluids. advised to f/u with pcp/gi in 1-2 days. return for any worsening symptoms. vss. well appearing. satting well on ra. pt understands and agrees to plan. On reexam, pt improved with tx listed. remained stable. nontoxic. well appearing. pain controlled. tolerating po. requesting to go home. serial abd exams remain benign Documentation achieved through voice recording which my lead to some occasional accidental typographical errors. Extensive efforts have been made to proof read documentation to make sure these are the least as possible. Category Date Time Status Gallbladder Ultrasound [U/S ABDOMEN LIMITED W/O DOP] [ Exams 02/15/19 16:52 Completed US] Stat CBC WITH DIFF [HEME] Stat Lab 02/15/19 16:39 Completed COMPREHENSIVE METABOLIC PANEL [CHEM] Stat Lab 02/15/19 16:39 Completed LIPASE [CHEM] Stat Lab 02/15/19 16:39 Completed URINALYSIS [URIN] Stat Lab 02/15/19 17:55 Completed Morphine Sulfate [Morphine 10 mg/ml Inj] Med 02/15/19 16:51 Discontinued 4 mg IV NOW ONE Normal Saline 1000 ml [NaCl 0.9% 1000 ml IV Soln] 1,000 Med 02/15/19 16:51 Discontinued ml IV BOLUS Ondansetron HCl/Pf [Zofran Inj/Pf 4 mg/2 ml Sdv] Med 02/15/19 16:51 Discontinued 4 mg IV NOW ONE - Vital Signs Vital signs: Temp Pulse Resp BP Pulse Ox 97.6 F 79 16 127/77 H 97 02/15/19 15:25 02/15/19 15:25 02/15/19 15:25 02/15/19 15:25 02/15/19 15:25 Temp Pulse Resp BP Pulse Ox 02/15/19 18:52 97.3 F 70 16 123/78 100 02/15/19 15:25 97.6 F 79 16 127/77 H 97 - Laboratory Result Diagrams: 02/15/19 16:39 02/15/19 16:39 Laboratory results interpreted by me: Labs- Entire Visit 02/15/19 02/15/19 02/15/19 16:39 16:39 16:39 WBC 11.6 H RBC 4.72 Hgb 14.5 Hct 42.8 MCV 91 MCH 30.7 MCHC 33.9 RDW 13.3 Plt Count 311 Seg Neutrophils % 69.8 Lymphocytes % 23.1 Monocytes % 6.4 Eosinophils % 0.4 Basophils % 0.3 Absolute Neutrophils 8.1 Absolute Lymphocytes 2.7 Absolute Monocytes 0.7 Absolute Eosinophils 0.0 Absolute Basophils 0.0 Sodium 142.5 Potassium 4.4 Chloride 107 Carbon Dioxide 27 Anion Gap 9 BUN 9 Creatinine 0.81 Est GFR ( Amer) > 60 Est GFR (Non-Af Amer) > 60 Glucose 81 Calcium 9.6 Total Bilirubin 0.4 Direct Bilirubin 0.2 Neonat Total Bilirubin Not Reportable Neonat Direct Bilirubin Not Reportable Neonat Indirect Bili Not Reportable AST 26 ALT 19 Alkaline Phosphatase 68 Total Protein 7.0 Albumin 4.6 Lipase 35.6 Urine Color Urine Appearance Urine pH Ur Specific Rozet Urine Protein Urine Glucose (UA) Urine Ketones Urine Blood Urine Nitrite Urine Bilirubin Urine Urobilinogen Ur Leukocyte Esterase Urine WBC (Auto) Urine RBC (Auto) Urine Mucus (Auto) Urine Ascorbic Acid 02/15/19 17:55 WBC RBC Hgb Hct MCV MCH MCHC RDW Plt Count Seg Neutrophils % Lymphocytes % Monocytes % Eosinophils % Basophils % Absolute Neutrophils Absolute Lymphocytes Absolute Monocytes Absolute Eosinophils Absolute Basophils Sodium Potassium Chloride Carbon Dioxide Anion Gap BUN Creatinine Est GFR ( Amer) Est GFR (Non-Af Amer) Glucose Calcium Total Bilirubin Direct Bilirubin Neonat Total Bilirubin Neonat Direct Bilirubin Neonat Indirect Bili AST ALT Alkaline Phosphatase Total Protein Albumin Lipase Urine Color YELLOW Urine Appearance CLEAR Urine pH 6.0 Ur Specific R[place]et 1.026 Urine Protein NEGATIVE Urine Glucose (UA) NEGATIVE Urine Ketones 20 H Urine Blood NEGATIVE Urine Nitrite NEGATIVE Urine Bilirubin NEGATIVE Urine Urobilinogen 2.0 H Ur Leukocyte Esterase NEGATIVE Urine WBC (Auto) 1 Urine RBC (Auto) 1 Urine Mucus (Auto) MANY Urine Ascorbic Acid NEGATIVE - Diagnostic Test Radiology reviewed: Image reviewed, Reports reviewed Radiology results interpreted by me: Abdomen Ultrasound 02/15/19 16:52 IMPRESSION: NORMAL RIGHT UPPER QUADRANT ULTRASOUND. Discharge - Discharge Clinical Impression: Biliary colic Abdominal pain Qualifiers: Abdominal location: right upper quadrant Qualified Code(s): R10.11 - Right upper quadrant pain Leukocytosis Qualifiers: Leukocytosis type: unspecified Qualified Code(s): D72.829 - Elevated white blood cell count, unspecified Condition: Good Disposition: HOME, SELF-CARE Instructions: Abdominal Pain ([facility]), Gallbladder Disease ([facility]) Additional Instructions: Follow-up with PCP/GI in 1 to 2 days. Return for any worsening symptoms. bland diet. drink plenty of fluids. tylenol for any pain. Referrals: CARLOS SETHI MD [Primary Care Provider] - Follow up as needed
[2019-02-15] MEDS ORDERED: MORPHINE SULFATE 10 MG/ML INJ IV ONE (16:51)
[2019-02-15] MEDS ORDERED: NORMAL SALINE 1000 ML 1,000 ML IV ONE (16:51)
[2019-02-15] MEDS ORDERED: ONDANSETRON HCL INJ/PF 4 MG/2 ML SDV IV ONE (16:51)
[2019-02-15 16:56] LABS: ABSOLUTE LYMPHOCYTES (AUTO) 2.7 10^3/uL (0.5-4.7); ABSOLUTE MONOCYTES (AUTO) 0.7 10^3/uL (0.1-1.4); ABSOLUTE NEUT (AUTO) 8.1 10^3/uL (1.7-8.2); BASOPHILS % (AUTO) 0.3 % (0-2); EOSINOPHILS % (AUTO) 0.4 % (0-6); HEMATOCRIT 42.8 % (37.9-51.0); HEMOGLOBIN 14.5 g/dL (13.5-17.0); LYMPHOCYTES % (AUTO) 23.1 % (13-45); MEAN CORPUSCULAR HEMOGLOBIN 30.7 pg (27.0-33.4); MEAN CORPUSCULAR HGB CONC 33.9 g/dL (32.0-36.0); MEAN CORPUSCULAR VOLUME 91 fl (80-97); MONOCYTES % (AUTO) 6.4 % (3-13); PLATELET COUNT 311 10^3/uL (150-450); RED BLOOD COUNT 4.72 10^6/uL (4.35-5.55); RED CELL DISTRIBUTION WIDTH 13.3 % (11.5-14.0); SEGMENTED NEUTROPHILS % (AUTO) 69.8 % (42-78); TOTAL CELLS COUNTED % (AUTO) 100 %; WHITE BLOOD COUNT 11.6 10^3/uL (4.0-10.5)
[2019-02-15 17:17] LABS: ALBUMIN 4.6 g/dL (3.5-5.0); ALKALINE PHOSPHATASE 68 U/L (38-126); ANION GAP 9 (5-19); ASPARTATE AMINO TRANSFERASE 26 U/L (17-59); BILIRUBIN,DIRECT 0.2 mg/dL (0.0-0.4); BILIRUBIN,TOTAL 0.4 mg/dL (0.2-1.3); BLOOD UREA NITROGEN 9 mg/dL (7-20); CALCIUM 9.6 mg/dL (8.4-10.2); CARBON DIOXIDE 27 mmol/L (22-30); CHLORIDE 107 mmol/L (98-107); GLUCOSE 81 mg/dL (75-110); POTASSIUM 4.4 mmol/L (3.6-5.0)
--- NOTE | 2019-02-15 18:12 | RADIOLOGY REPORT (SQ) ---
EXAM DESCRIPTION: U/S ABDOMEN LIMITED W/O DOP COMPLETED DATE/TIME: 02/15/2019 5:48 pm REASON FOR STUDY: ruq abd pain COMPARISON: None. TECHNIQUE: Dynamic and static grayscale images acquired of the abdomen and recorded on PACS. Joaquino maria guadalupe selected color Doppler and spectral images recorded. LIMITATIONS: None. FINDINGS: PANCREAS: No masses. Visualized pancreatic duct normal caliber. LIVER: No masses. Echotexture normal. LIVER VASCULATURE: Normal directional flow of the main portal vein and hepatic veins. GALLBLADDER: No stones. Normal wall thickness. No pericholecystic fluid. ULTRASOUND-DETECTED TORRES'S SIGN: Negative. INTRAHEPATIC DUCTS AND COMMON DUCT: CBD and intrahepatic ducts normal caliber. No filling defects. INFERIOR VENA CAVA: Normal flow. AORTA: No aneurysm. RIGHT KIDNEY: Normal size. Normal echogenicity. No solid or suspicious masses. No hydronephrosis. No calcifications. PERITONEAL AND RIGHT PLEURAL SPACE: No ascites or effusions. OTHER: No other significant findings. IMPRESSION: NORMAL RIGHT UPPER QUADRANT ULTRASOUND. TECHNICAL DOCUMENTATION: JOB ID: [id number] [email or web address]- All Rights Reserved Reading location - IP/workstation name: [email or web address]
[2019-02-15 18:33] LABS: APPEARANCE,URINE CLEAR; BILIRUBIN,URINE NEGATIVE (NEGATIVE); COLOR,URINE YELLOW; GLUCOSE, URINE NEGATIVE (NEGATIVE); KETONES,URINE 20 mg/dL (NEGATIVE); LEUKOCYTE ESTERASE,URINE NEGATIVE (NEGATIVE); NITRITE,URINE NEGATIVE (NEGATIVE); PROTEIN,URINE NEGATIVE (NEGATIVE); URINE SPECIFIC GRAVITY 1.026
[2019-02-15 18:53] VITALS: BP 123/78
== END 2019-02-15 18:57 | disposition home or self-care (01) ==
LOC: ER 15:16
DX: K80.50 Calculus of bile duct without cholangitis or cholecystitis without obstruction (principal); R10.11 Right upper quadrant pain; D72.829 Elevated white blood cell count, unspecified; F17.200 Nicotine dependence, unspecified, uncomplicated; E66.9 Obesity, unspecified
CPT/HCPCS: 99284; 96361; 96374; 96375; 36415; 83690; 85025; 80053; 81001; 76705; J2270; J2405; J7030

== ENCOUNTER 2019-04-18 14:47 | Emergency (ER) | payer SELFPAY ==
--- NOTE | 2019-04-18 15:12 | ER Document Report ---
ED Medical Screen (RME) - General Chief Complaint: Chest Pain Stated Complaint: CHEST/BACK PAINS/WEAKNESS Time Seen by Provider: 04/18/19 15:08 Primary Care Provider: CARLOS SETHI MD [Primary Care Provider] - Follow up as needed Mode of Arrival: Ambulatory Information source: Patient Notes: 28-year-old male presents to ED for chest pain since 10:00 this morning. He states he is having real bad pain in his left middle and right chest as well as the upper back. He states he is also having weakness in both arms. He states he is also having shortness of breath. He denies any cough cold congestion recently. He denies history of blood pressure and cholesterol problems. He states he quit smoking and went to vaping does not drink and does not use drugs. I have greeted and performed a rapid initial assessment of this patient. A comprehensive ED assessment and evaluation of the patient, analysis of test results and completion of medical decision making process will be conducted by an additional ED providers. TRAVEL OUTSIDE OF THE [place] 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
[2019-04-18] MEDS ORDERED: ASPIRIN 81 MG TABLET, CHEWABLE PO ONE (15:13)
[2019-04-18 16:00] LABS: ABSOLUTE MONOCYTES (AUTO) 0.5 10^3/uL (0.1-1.4); BASOPHILS % (AUTO) 0.2 % (0-2); TOTAL CELLS COUNTED % (AUTO) 100 %
[2019-04-18 16:05] LABS: APPEARANCE,URINE CLEAR; BILIRUBIN,URINE NEGATIVE (NEGATIVE); COLOR,URINE YELLOW; GLUCOSE, URINE NEGATIVE (NEGATIVE); KETONES,URINE TRACE mg/dL (NEGATIVE); PROTEIN,URINE NEGATIVE (NEGATIVE); URINE SPECIFIC GRAVITY 1.025
[2019-04-18 16:06] LABS: ABSOLUTE LYMPHOCYTES (AUTO) 2.3 10^3/uL (0.5-4.7); EOSINOPHILS % (AUTO) 0.1 % (0-6); HEMATOCRIT 47.6 % (37.9-51.0); HEMOGLOBIN 16.1 g/dL (13.5-17.0); INTERNATIONAL RATION (INR) 1.04; LYMPHOCYTES % (AUTO) 19.3 % (13-45); MEAN CORPUSCULAR HEMOGLOBIN 29.9 pg (27.0-33.4); MEAN CORPUSCULAR HGB CONC 33.8 g/dL (32.0-36.0); MEAN CORPUSCULAR VOLUME 88 fl (80-97); MONOCYTES % (AUTO) 4.3 % (3-13); PLATELET COUNT 363 10^3/uL (150-450); PROTHROMBIN TIME 13.6 SEC (11.4-15.4); RED BLOOD COUNT 5.38 10^6/uL (4.35-5.55); RED CELL DISTRIBUTION WIDTH 13.5 % (11.5-14.0); SEGMENTED NEUTROPHILS % (AUTO) 76.1 % (42-78); WHITE BLOOD COUNT 11.8 10^3/uL (4.0-10.5)
[2019-04-18 16:07] LABS: PARTIAL THROMBOPLASTIN TIME 27.2 SEC (23.5-35.8)
[2019-04-18 16:16] LABS: ALKALINE PHOSPHATASE 75 U/L (38-126); ANION GAP 12 (5-19); ASPARTATE AMINO TRANSFERASE 28 U/L (17-59); BILIRUBIN,DIRECT 0.2 mg/dL (0.0-0.4); BILIRUBIN,TOTAL 0.7 mg/dL (0.2-1.3); BLOOD UREA NITROGEN 9 mg/dL (7-20); CARBON DIOXIDE 25 mmol/L (22-30); CHLORIDE 103 mmol/L (98-107); CREATINE KINASE 139 U/L (55-170); GLUCOSE 89 mg/dL (75-110); POTASSIUM 4.4 mmol/L (3.6-5.0); TOTAL PROTEIN 8.1 g/dL (6.3-8.2)
--- NOTE | 2019-04-18 16:16 | RADIOLOGY REPORT (SQ) ---
EXAM DESCRIPTION: CHEST 2 VIEWS COMPLETED DATE/TIME: 04/18/2019 4:07 pm REASON FOR STUDY: chest pain COMPARISON: None. EXAM PARAMETERS: NUMBER OF VIEWS: two views TECHNIQUE: Digital Frontal and Lateral radiographic views of the chest acquired. RADIATION DOSE: NA LIMITATIONS: none FINDINGS: LUNGS AND PLEURA: No opacities, masses or pneumothorax. No pleural effusion. MEDIASTINUM AND HILAR STRUCTURES: No masses or contour abnormalities. HEART AND VASCULAR STRUCTURES: Heart normal size. No evidence for failure. BONES: No acute findings. HARDWARE: None in the chest. OTHER: No other significant finding. IMPRESSION: NO ACUTE RADIOGRAPHIC FINDING IN THE CHEST. TECHNICAL DOCUMENTATION: JOB ID: [id number] [employer]- All Rights Reserved Reading location - IP/workstation name: [email or web address]
[2019-04-18 16:28] LABS: CREATINE KINASE MB 2.69 ng/mL (<4.55)
[2019-04-18 16:29] LABS: TROPONIN I < 0.012 ng/mL
[2019-04-18] MEDS ORDERED: NORMAL SALINE 1000 ML 1,000 ML IV ONE (18:01)
[2019-04-18] MEDS ORDERED: FENTANYL CITRATE INJ/PF 100 MCG/2 ML AMPUL IV ONE (18:02)
--- NOTE | 2019-04-18 18:05 | ER Document Report ---
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 Patient states that he felt like he had weakness in bilateral upper extremities. No cough or cold symptoms no nausea or vomiting. Patient denies any history of DVT or PE. Patient denies any history of cough or cold symptoms. Patient denies any headache or fever. TRAVEL OUTSIDE OF THE [place] IN LAST 30 DAYS: No - HPI Patient complains to provider of: Chest pain, Shortness of breath Was the onset of pain: Gradual Chest pain location: Substernal, Back Quality of pain: Pressure, Tightness Pain level currently: 5 Cardiac risk factors: Smoker. denies: Diabetes, Hypertension, Dyslipidemia Associated symptoms: Back pain, Shortness of breath. denies: Abdominal pain, Lightheaded, Nausea/vomiting Exacerbated by: Denies Relieved by: Nothing Similar symptoms previously: No Recently seen / treated by doctor: No - Related Data Allergies/Adverse Reactions: No Known Allergies Allergy (Verified 02/15/19 15:16) Past Medical History - General Information source: Patient - Social History Smoking Status: Current Some Day Smoker Frequency of alcohol use: None Drug Abuse: None Occupation: Certified Endoscopy Technician Family History: None Patient has suicidal ideation: No Patient has homicidal ideation: No - Medical History Medical History: Negative Renal/ Medical History: Denies: Hx Kidney Stones, Hx Peritoneal Dialysis Past Surgical History: Reports: Hx Bowel Surgery - 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 denies: Fever, Recent illness EENT: No symptoms reported Cardiovascular: Chest pain. denies: Dizziness, Lightheaded Respiratory: Short of breath. denies: Cough Gastrointestinal: No symptoms reported. denies: Abdominal pain, Nausea, Vomiting Genitourinary: No symptoms reported. denies: Dysuria Male Genitourinary: No symptoms reported Musculoskeletal: Back pain Skin: No symptoms reported Hematologic/Lymphatic: No symptoms reported Neurological/Psychological: No symptoms reported Physical Exam - Vital signs Vitals: Pulse Resp BP Pulse Ox 84 18 142/85 H 99 04/18/19 15:03 04/18/19 15:03 04/18/19 15:03 04/18/19 15:03 - General General appearance: Appears well, Alert In distress: None - HEENT Head: Normocephalic, Atraumatic Eyes: Normal Nasal: Normal Mouth/Lips: Normal Mucous membranes: Normal Neck: Normal, Supple. No: Lymphadenopathy - Respiratory Respiratory status: No respiratory distress Chest status: Tender Breath sounds: Normal Chest palpation: Normal - Cardiovascular Rhythm: Regular Heart sounds: S1 appreciated, S2 appreciated Murmur: No - Abdominal Inspection: Normal Distension: No distension Bowel sounds: Normal Tenderness: Nontender Organomegaly: No organomegaly - Back Back: Tender - Upper thoracic tenderness T4 area, no step-off or deformity. No: Deformity/step-off, CVA tenderness - Extremities General upper extremity: Normal inspection, Nontender, Normal ROM General lower extremity: Normal inspection, Nontender, Normal ROM - Neurological Neuro grossly intact: Yes Cognition: Normal Orientation: AAOx4 Minnie Coma Scale Eye Opening: Spontaneous Procious Coma Scale Verbal: Oriented Procious Coma Scale Motor: Obeys Commands Procious Coma Scale Total: 15 - Psychological Associated symptoms: Normal affect, Normal mood - Skin Skin Temperature: Warm Skin Moisture: Dry Skin Color: Normal Course - Re-evaluation Re-evalutation: 04/18/19 19:33 Patient nontoxic in appearance. Patient PERC negative with a negative d-dimer. Patient with a heart score of 0. The patient has atypical chest pain as the patient's chest pain is not suggestive of pulmonary embolus, cardiac ischemia, aortic dissection, or other serious etiology. Given the extremely low risk of these diagnoses, evaluation for these possibilities does not appear to be indic ated at this time. Patient has been instructed to return if the symptoms worsen or change in any way. Consulted with Dr. wilson who is agreeable with discharge plan of care at this time. - Vital Signs Vital signs: Temp Pulse Resp BP Pulse Ox 98.1 F 70 16 130/77 H 100 04/18/19 20:21 04/18/19 20:21 04/18/19 20:21 04/18/19 20:21 04/18/19 20:21 - Laboratory Result Diagrams: 04/18/19 15:43 04/18/19 15:43 Laboratory results interpreted by me: 04/18/19 04/18/19 15:43 15:43 WBC 11.8 H Absolute Neuts (auto) 9.0 H Urine Ketones TRACE H Urine Urobilinogen 2.0 H 04/18/19 19:30 Labs- Entire Visit 04/18/19 04/18/19 04/18/19 15:43 15:43 15:43 WBC 11.8 H RBC 5.38 Hgb 16.1 Hct 47.6 MCV 88 MCH 29.9 MCHC 33.8 RDW 13.5 Plt Count 363 Lymph % (Auto) 19.3 [place] % (Auto) 4.3 Eos % (Auto) 0.1 Baso % (Auto) 0.2 Absolute Neuts (auto) 9.0 H Absolute Lymphs (auto) 2.3 Absolute Monos (auto) 0.5 Absolute Eos (auto) 0.0 Absolute Basos (auto) 0.0 Seg Neutrophils % 76.1 PT 13.6 INR 1.04 APTT 27.2 D-Dimer Sodium 140.4 Potassium 4.4 Chloride 103 Carbon Dioxide 25 Anion Gap 12 BUN 9 Creatinine 0.79 Est GFR ( Amer) > 60 Est GFR (MDRD) Non-Af > 60 Glucose 89 Calcium 10.0 Total Bilirubin 0.7 Direct Bilirubin 0.2 Neonat Total Bilirubin Not Reportable Neonat Direct Bilirubin Not Reportable Neonat Indirect Bili Not Reportable AST 28 ALT 23 Alkaline Phosphatase 75 Creatine Kinase 139 CK-MB (CK-2) Troponin I Total Protein 8.1 Albumin 5.0 Lipase 25.0 Urine Color Urine Appearance Urine pH Ur Specific [place] Urine Protein Urine Glucose (UA) Urine Ketones Urine Blood Urine Nitrite (Reflex) Urine Bilirubin Urine Urobilinogen Leukocyte Esterase Rfl Urine RBC (Auto) Urine WBC (Reflex) Urine Mucus (Auto) Urine Ascorbic Acid 04/18/19 04/18/19 04/18/19 15:43 15:43 18:17 WBC RBC Hgb Hct MCV MCH MCHC RDW Plt Count Lymph % (Auto) [place] % (Auto) Eos % (Auto) Baso % (Auto) Absolute Neuts (auto) Absolute Lymphs (auto) Absolute Monos (auto) Absolute Eos (auto) Absolute Basos (auto) Seg Neutrophils % PT INR APTT D-Dimer < 0.27 Sodium Potassium Chloride Carbon Dioxide Anion Gap BUN Creatinine Est GFR ( Amer) Est GFR (MDRD) Non-Af Glucose Calcium Total Bilirubin Direct Bilirubin Neonat Total Bilirubin Neonat Direct Bilirubin Neonat Indirect Bili AST ALT Alkaline Phosphatase Creatine Kinase CK-MB (CK-2) 2.69 Troponin I < 0.012 Total Protein Albumin Lipase Urine Color YELLOW Urine Appearance CLEAR Urine pH 8.0 Ur Specific [place] 1.025 Urine Protein NEGATIVE Urine Glucose (UA) NEGATIVE Urine Ketones TRACE H Urine Blood NEGATIVE Urine Nitrite (Reflex) NEGATIVE Urine Bilirubin NEGATIVE Urine Urobilinogen 2.0 H Leukocyte Esterase Rfl NEGATIVE Urine RBC (Auto) 1 Urine WBC (Reflex) 1 Urine Mucus (Auto) FEW Urine Ascorbic Acid NEGATIVE 04/18/19 18:17 WBC RBC Hgb Hct MCV MCH MCHC RDW Plt Count Lymph % (Auto) [place] % (Auto) Eos % (Auto) Baso % (Auto) Absolute Neuts (auto) Absolute Lymphs (auto) Absolute Monos (auto) Absolute Eos (auto) Absolute Basos (auto) Seg Neutrophils % PT INR APTT D-Dimer Sodium Potassium Chloride Carbon Dioxide Anion Gap BUN Creatinine Est GFR ( Amer) Est GFR (MDRD) Non-Af Glucose Calcium Total Bilirubin Direct Bilirubin Neonat Total Bilirubin Neonat Direct Bilirubin Neonat Indirect Bili AST ALT Alkaline Phosphatase Creatine Kinase CK-MB (CK-2) Troponin I < 0.012 Total Protein Albumin Lipase Urine Color Urine Appearance Urine pH Ur Specific [place] Urine Protein Urine Glucose (UA) Urine Ketones Urine Blood Urine Nitrite (Reflex) Urine Bilirubin Urine Urobilinogen Leukocyte Esterase Rfl Urine RBC (Auto) Urine WBC (Reflex) Urine Mucus (Auto) Urine Ascorbic Acid - Diagnostic Test Radiology reviewed: Reports reviewed - EKG Interpretation by Me EKG shows normal: Sinus rhythm Rate: Normal Rhythm: NSR Additional EKG results interpreted by me: 04/18/19 19:[address] elevation, QTc 409 Discharge - Discharge Clinical Impression: Upper back pain Chest pain Qualifiers: Chest pain type: unspecified Qualified Code(s): R07.9 - Chest pain, unspecified Condition: Stable Disposition: HOME, SELF-CARE Instructions: Chest Pain of Unclear Cause ([facility]), Muscle Relaxers ([facility]), Upper Back Strain ([facility]) Additional Instructions: Return immediately for any new or worsening symptoms Followup with your primary care provider, call tomorrow to make a followup appointment You were seen today for chest pain. The exact cause of your pain is unclear. H owever, based on your cardiac enzyme testing, chest x-ray, and EKG it does not appear that it is from an immediately life-threatening cause at this time. Although your testing here is normal is critical that you follow-up with your primary care physician for continued evaluation of this chest pain and possible stress testing. I recommended you see your physician within the next 24-48 hours to be evaluated for consideration of a stress test. Please return to emergency department immediately if you have worsening of your chest pain, shortness of breath, vomiting, become unable to exert yourself due to pain or difficulty breathing, you pass out, or have any pain that radiates into your arms, jaw, or back. Please also return if you have any additional symptoms that are concerning to you. Prescriptions: Cyclobenzaprine HCl [Flexeril 10 Mg Tablet] 10 mg PO TID #15 tablet Naproxen [Naprosyn 250 Nmg Tablet] 1 tab PO BID #14 tablet Forms: Smoking Cessation Education, Return to Work Referrals: CARLOS SETHI MD [HONORARY] - Follow up as needed FILEMON ALMANZA MD [ACTIVE STAFF] - Follow up as needed ELIU DUMONT MD [ACTIVE STAFF] - Follow up as needed
[2019-04-18 20:26] VITALS: BP 130/77
--- NOTE | 2019-04-20 00:30 | EKG REPORT ---
SEVERITY:- NORMAL ECG - SINUS RHYTHM : Confirmed by: Caridad Herrera 20-Apr-2019 00:29:27
== END 2019-04-18 20:26 | disposition home or self-care (01) ==
LOC: ER 14:47
DX: R07.89 Other chest pain (principal); M54.9 Dorsalgia, unspecified; R06.02 Shortness of breath; F17.200 Nicotine dependence, unspecified, uncomplicated
CPT/HCPCS: 93005; 99285; 96361; 96374; 82553; 82550; 83690; 85025; 85610; 85730; 80053; 81001; 84484; 85379; 71046; 93010; 36415; J3010; J7030

== ENCOUNTER 2019-04-20 11:48 | Emergency (ER) | payer SELFPAY ==
--- NOTE | 2019-04-20 12:29 | ER Document Report ---
ED Medical Screen (RME) - General Chief Complaint: Chest Pain Stated Complaint: CHEST,UPPER BACK PAIN Time Seen by Provider: 04/20/19 12:26 Primary Care Provider: ZACK BRANCH [Primary Care Provider] - Follow up as needed Mode of Arrival: Ambulatory Information source: Patient Notes: 28-year-old male presented to ED for complaint of chest and upper back pain since Sunday. He was here on Sunday had a negative cardiac work-up. Denies any fevers. He states he has not been lifting or doing anything that should be making his back and chest hurt. Very tired yesterday pain in his upper back left-sided chest but none in his jaw or neck. I have greeted and performed a rapid initial assessment of this patient. A comprehensive ED assessment and evaluation of the patient, analysis of test results and completion of medical decision making process will be conducted by an additional ED providers. TRAVEL OUTSIDE OF THE [place] 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
[2019-04-20] MEDS ORDERED: ASPIRIN 81 MG TABLET, CHEWABLE PO ONE (12:30)
[2019-04-20 13:41] LABS: ABSOLUTE LYMPHOCYTES (AUTO) 2.7 10^3/uL (0.5-4.7); ABSOLUTE MONOCYTES (AUTO) 0.7 10^3/uL (0.1-1.4); ABSOLUTE NEUT (AUTO) 6.5 10^3/uL (1.7-8.2); BASOPHILS % (AUTO) 0.2 % (0-2); EOSINOPHILS % (AUTO) 0.1 % (0-6); HEMATOCRIT 46.2 % (37.9-51.0); HEMOGLOBIN 15.5 g/dL (13.5-17.0); LYMPHOCYTES % (AUTO) 27.4 % (13-45); MEAN CORPUSCULAR HEMOGLOBIN 30.2 pg (27.0-33.4); MEAN CORPUSCULAR HGB CONC 33.6 g/dL (32.0-36.0); MEAN CORPUSCULAR VOLUME 90 fl (80-97); MONOCYTES % (AUTO) 7.2 % (3-13); PLATELET COUNT 333 10^3/uL (150-450); RED BLOOD COUNT 5.14 10^6/uL (4.35-5.55); RED CELL DISTRIBUTION WIDTH 13.5 % (11.5-14.0); SEGMENTED NEUTROPHILS % (AUTO) 65.1 % (42-78); TOTAL CELLS COUNTED % (AUTO) 100 %; WHITE BLOOD COUNT 9.9 10^3/uL (4.0-10.5)
--- NOTE | 2019-04-20 13:54 | RADIOLOGY REPORT (SQ) ---
EXAM DESCRIPTION: CHEST 2 VIEWS COMPLETED DATE/TIME: 04/20/2019 1:32 pm REASON FOR STUDY: chest and upper back pain COMPARISON: 04/18/2019. EXAM PARAMETERS: NUMBER OF VIEWS: two views TECHNIQUE: Digital Frontal and Lateral radiographic views of the chest acquired. RADIATION DOSE: NA LIMITATIONS: none FINDINGS: LUNGS AND PLEURA: No opacities, masses or pneumothorax. No pleural effusion. MEDIASTINUM AND HILAR STRUCTURES: No masses or contour abnormalities. HEART AND VASCULAR STRUCTURES: Heart normal size. No evidence for failure. BONES: No acute findings. HARDWARE: None in the chest. OTHER: No other significant finding. IMPRESSION: NO ACUTE RADIOGRAPHIC FINDING IN THE CHEST. TECHNICAL DOCUMENTATION: JOB ID: [id number] [employer]- All Rights Reserved Reading location - IP/workstation name: [email or web address]
[2019-04-20 14:02] LABS: APPEARANCE,URINE SLIGHTLY-CLOUDY; BILIRUBIN,URINE NEGATIVE (NEGATIVE); COLOR,URINE AMBER; GLUCOSE, URINE NEGATIVE (NEGATIVE); KETONES,URINE TRACE mg/dL (NEGATIVE); PROTEIN,URINE NEGATIVE (NEGATIVE); URINE SPECIFIC GRAVITY 1.028
[2019-04-20 14:04] LABS: ALBUMIN 4.7 g/dL (3.5-5.0); ALKALINE PHOSPHATASE 71 U/L (38-126); ANION GAP 12 (5-19); ASPARTATE AMINO TRANSFERASE 29 U/L (17-59); BILIRUBIN,DIRECT 0.1 mg/dL (0.0-0.4); BILIRUBIN,TOTAL 0.7 mg/dL (0.2-1.3); BLOOD UREA NITROGEN 10 mg/dL (7-20); CALCIUM 9.6 mg/dL (8.4-10.2); CARBON DIOXIDE 26 mmol/L (22-30); CHLORIDE 102 mmol/L (98-107); GLUCOSE 80 mg/dL (75-110); POTASSIUM 4.1 mmol/L (3.6-5.0); TOTAL PROTEIN 7.7 g/dL (6.3-8.2)
[2019-04-20 14:13] LABS: URINE AMPHETAMINES SCREEN NEGATIVE; URINE BARBITURATES SCREEN NEGATIVE; URINE BENZODIAZEPINES SCREEN NEGATIVE; URINE COCAINE SCREEN NEGATIVE; URINE MARIJUANA (THC) SCREEN NEGATIVE; URINE METHADONE SCREEN NEGATIVE; URINE PHENCYCLIDINE SCREEN NEGATIVE
[2019-04-20] MEDS ORDERED: KETOROLAC TROMETHAMINE INJ/PF 30 MG/1 ML SDV IM ONE (16:51)
--- NOTE | 2019-04-20 16:57 | ER Document Report ---
ED General - General Chief Complaint: Chest Pain Stated Complaint: CHEST,UPPER BACK PAIN Time Seen by Provider: 04/20/19 12:26 Primary Care Provider: [facility] [Primary Care Provider] - Follow up as needed Mode of Arrival: Ambulatory TRAVEL OUTSIDE OF THE [place] IN LAST 30 DAYS: No - HPI Notes: Patient is a 28-year-old male with no significant past medical history aside from vaping who presents complaining of sternal chest pain bilaterally that is been present for 3 days and has been constant. Patient states the pain does not wax and wane. It does not radiate. Patient states that he does have some upper back soreness as well. Patient states that movement makes the pain worse. No known injury. Denies drug allergies. He is able to eat and drink without difficulty or changes in symptoms. He is urinating normally and having normal bowel movements. Patient was evaluated 2 days ago and had x-ray as well as labs performed which were all negative including a d-dimer. He has not had any changes since then. Denies any prolonged immobilization, distance travel, recent surgery/trauma, personal cancer history, hormone use, or previous DVT/PE. Denies any headache, fever, neck pain, URI, sore throat, palpitations, syncope, cough, shortness of breath, wheeze, dyspnea, abdominal pain, nausea/vomiting/diarrhea, urinary retention, dysuria, hematuria, loss of control of bowel or bladder, numbness/tingling, saddle anesthesia, muscle paralysis/weakness, or rash. 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 HEAD: Atraumatic, normocephalic. EYES: Pupils equal round and reactive to light, extraocular movements intact, sclera anicteric, conjunctiva are normal. ENT: Nares patent and without discharge. oropharynx clear without exudates. No tonsilar hypertrophy or erythema. Moist mucous membranes. NECK: Normal range of motion, supple without lymphadenopathy Chest: + reproducible tenderness to palpation of the b/l sternal area and reproducible with arm extension/abduction b/l. LUNGS: Breath sounds clear to auscultation bilaterally and equal. No wheezes rales or rhonchi. HEART: Regular rate and rhythm without murmurs, rubs, gallops. ABDOMEN: Soft, nontender, nondistended abdomen. No guarding, no rebound. No masses appreciated. Normal bowel sounds present. No CVA tenderness bilaterally. Musculoskeletal: FROM to passive/active. Strength 5+/5. Jojo neg. No asymmetry to LE's. Extremities: No cyanosis, clubbing, or edema b/l. Peripheral pulses 2+. C apillary refill less than 3 seconds. NEUROLOGICAL: Normal speech, normal gait. PSYCH: Normal mood, normal affect. SKIN: Warm, Dry, normal turgor, no rashes or lesions noted. Course - Re-evaluation Re-evalutation: 04/20/19 16:55 Patient is an afebrile, well-hydrated 28-year-old male who presents to the ED with chest wall pain. Vitals are acceptable without any significant tachycardia, tachypnea, or hypoxia. PE is otherwise unremarkable aside from the reproducible chest wall tenderness with palp and ROM. Patient is nontoxic- appearing and is tolerating p.o. without any difficulties. CBC, CMP, EKG/cardiac enzyme, chest x-ray are all unremarkable for any acute pathology. Patient has a heart score of 1, Wells score of 0, and is PERC negative. He had an unremarkable cardiac work up 2 days ago including a d-dimer. Patient does not have any dyspnea or shortness of breath. Patient's presentation and symptomatology creates low suspicion for ACS, PE, pneumothorax, pericarditis, dissection, respiratory compromise, severe dehydration, sepsis, meningitis, or other systemic emergent condition at this time. Patient is aware that his condition can change from initial presentation and he needs to monitor symptoms closely and seek medical attention for any acute changes. Toradol given IM. I will send him home with robaxin/naproxen. Recommend conservative measures for symptoms. Recheck with your PCM in 2-3 days. Consider consult with Cardiology. Return to the ED with any worsening/concerning symptoms otherwise as reviewed in discharge. Patient is in agreement. - Vital Signs Vital signs: Temp Pulse Resp BP Pulse Ox 97.9 F 78 18 123/75 99 04/20/19 11:53 04/20/19 11:53 04/20/19 11:53 04/20/19 11:53 04/20/19 11:53 - Laboratory Result Diagrams: 04/20/19 13:13 04/20/19 13:13 Laboratory results interpreted by me: 04/20/19 13:42 Urine Ketones TRACE H Urine Urobilinogen 2.0 H Discharge - Discharge Clinical Impression: Chest wall pain Condition: Stable Disposition: HOME, SELF-CARE Instructions: Chest Wall Pain ([facility]) Additional Instructions: Maintain adequate fluid and food intake Take home medications as directed ice/heat, massage, light stretches all healthy diet Monitor blood pressure daily and keep a log Monitor symptoms for any acute changes Recheck with your PCM in 2-3 days Consider a follow-up with cardiology Return to the ED with any worsening symptoms and/or development of fever, headache, chest pain, palpitations, syncope, shortness of breath, trouble breathing, abdominal pain, n/v/d, blood in stool/urine, loss of control of bowel/bladder, urinary retention, muscle weakness/paralysis, numbness/tingling, or other worsening symptoms that are concerning to you. Prescriptions: Naproxen 500 mg PO BID #14 tablet Methocarbamol [Robaxin 750 mg Tablet] 750 mg PO TID PRN #10 tablet PRN Reason: Forms: Smoking Cessation Education Referrals: [facility] [Primary Care Provider] - Follow up as needed ELIU DUMONT MD [ACTIVE STAFF] - Follow up as needed
[2019-04-20 17:14] VITALS: BP 123/76
--- NOTE | 2019-04-21 02:20 | EKG REPORT ---
SEVERITY:- BORDERLINE ECG - SINUS RHYTHM INFERIOR Q WAVES, PROBABLY NORMAL VARIATION : Confirmed by: Caridad Herrera 21-Apr-2019 02:18:49
== END 2019-04-20 17:17 | disposition home or self-care (01) ==
LOC: ER 11:48
DX: R07.89 Other chest pain (principal); M54.6 Pain in thoracic spine; F17.200 Nicotine dependence, unspecified, uncomplicated
CPT/HCPCS: 93005; 99285; 96374; 36415; 83690; 85025; 80053; 81001; 84484; 80307; 71046; 93010; J1885

== ENCOUNTER 2019-05-19 15:18 | Emergency (ER) | payer SELFPAY ==
[2019-05-19 15:34] VITALS: BP 122/70
[2019-05-19] MEDS ORDERED: KETOROLAC TROMETHAMINE 60 MG/2 ML SDV IM ONE (15:53)
--- NOTE | 2019-05-19 15:55 | ER Document Report ---
HPI - HPI Patient complains to provider of: back pain Time Seen by Provider: 05/19/19 15:49 Onset: This morning Onset/Duration: Sudden Quality of pain: Achy Severity: Severe Pain Level: 5 Context: 28-year-old male presents emergency department with complaints of low back pain. Reports he was lifting a couch this morning started hurting. Denies history of back injury. Denies urinary bowel incontinence or retention. Denies fever vomiting diarrhea. Denies use of IV drug steroids. Patient reports pain with movement. Associated Symptoms: None Exacerbated by: Movement Relieved by: Denies Similar symptoms previously: No Recently seen / treated by doctor: No - REPRODUCTIVE Reproductive: DENIES: : Past Medical History - General Information source: Patient - Social History Smoking Status: Former Smoker Cigarette use (# per day): Yes - Vapes Chew tobacco use (# tins/day): No Frequency of alcohol use: None Drug Abuse: None Lives with: Family Family History: None Patient has suicidal ideation: No Patient has homicidal ideation: No - Medical History Medical History: Negative Renal/ Medical History: Denies: Hx Kidney Stones, Hx Peritoneal Dialysis Past Surgical History: Reports: Hx Bowel Surgery - pyloric stenosis repair 5 days old, Hx Herniorrhaphy - inguinal hernia repair remotely, Hx Open Heart Surgery - 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 IN LAST 30 DAYS: No - HEENT HEENT: Atraumatic, Normocephalic - NECK Neck: Supple - RESPIRATORY Respiratory: No Respiratory Distress - CARDIOVASCULAR Cardiovascular: Regular Rate - GI/ABDOMEN Gastrointestinal: Abdomen Soft, Abdomen Non-Tender - BACK Back: Normal Inspection - No obvious deformity no erythema no swelling no warmth good distal movement sensation no weakness. Patient complains of low back pain paraspinal - MUSCULOSKELETAL/EXTREMETIES Musculoskeletal/Extremeties: ARTI PAZ - NEURO Level of Consciousness: Awake, Alert, Appropriate - DERM Integumentary: Warm, Dry Course - Re-evaluation Re-evalutation: 05/19/19 15:57 28-year-old male presents emergency department with low back pain after he lifted a couch. Denies urinary bowel incontinence or retention. Denies numbness tingling.. Denies past medical history of IV drug use steroids. No complaints of fever vomiting diarrhea. Patient was instructed on Toradol for pain and prescribed Flexeril. He was instructed on red flags of back pain return for these concerns. He verbalized understanding to all instructions. Low suspicion for any meningitis, fracture, expanding/ruptured AAA, cauda equina syndrome, epidural mass lesion/abscess, herniated disc causing severe spinal stenosis, or other systemic infection at this time. Patient is aware that this condition can change from initial presentation and that she needs monitor symptoms closely for any acute changes. Dictation of this chart was performed using voice recognition software; therefore, there may be some unintended grammatical errors. - Vital Signs Vital signs: Temp Pulse Resp BP Pulse Ox 98.0 F 75 122/70 99 05/19/19 15:33 05/19/19 15:33 05/19/19 15:33 05/19/19 15:33 Discharge - Discharge Clinical Impression: Back pain Qualifiers: Back pain location: low back pain Chronicity: acute Back pain laterality: bilateral Sciatica presence: without sciatica Qualified Code(s): M54.5 - Low back pain Condition: Stable Disposition: HOME, SELF-CARE Instructions: Use of [id number] Ibuprofen ([facility]), Ice Packs ([facility]), Low Back Pain ([facility]), Muscle Relaxers ([facility]), Toradol Injection ([facility]) Additional Instructions: *You have been evaluated for back pain *Take medication as prescribed *Rest/Ice packs as discussed *Follow up with a primary care provider within one week for recheck *Card your back avoid heavy lifting *Return to ED for worsening condition, changes, needs, worsening pain difficulty voiding fever concerns Prescriptions: Cyclobenzaprine HCl [Flexeril 10 Mg Tablet] 10 mg PO TID #15 tablet Referrals: [facility] [NO LOCAL MD] - Follow up as needed
== END 2019-05-19 16:29 | disposition home or self-care (01) ==
LOC: ER 15:18
DX: M54.5 Low back pain (principal)
CPT/HCPCS: 99283; 96372; J1885

== ENCOUNTER 2019-07-28 18:13 | Emergency (ER) | payer BC ==
[2019-07-28] MEDS ORDERED: DEXAMETHASONE SOD PHOS INJ 10 MG/1 ML VIAL IM ONE (19:30)
[2019-07-28] MEDS ORDERED: KETOROLAC TROMETHAMINE INJ/PF 30 MG/1 ML SDV IM ONE (19:30)
[2019-07-28 20:21] LABS: A TYPE INFLUENZA AG NEGATIVE (NEGATIVE)
[2019-07-28 20:22] LABS: B INFLUENZA AG NEGATIVE (NEGATIVE)
--- NOTE | 2019-07-28 20:31 | RADIOLOGY REPORT (SQ) ---
EXAM DESCRIPTION: XR CHEST 2 VIEWS COMPLETED DATE/TME: 07/28/2019 19:30 CLINICAL HISTORY: 28 years, Male, productive cough x 1 week COMPARISON: April 20, 2019 NUMBER OF VIEWS: 2 TECHNIQUE: Frontal lateral LIMITATIONS: None. FINDINGS: Cardiomediastinal silhouette is normal. Minimal patchy alveolar space disease right upper lobe and right lower lobe. No effusion. No pneumothorax. IMPRESSION: Patchy alveolar space disease right lung, likely infectious inflammatory copyright 2010 [employer]- All Rights Reserved
--- NOTE | 2019-07-28 20:44 | ER Document Report ---
HPI - HPI Time Seen by Provider: 07/28/19 19:25 Pain Level: 5 Context: Patient is a 28-year-old male presents emergency department with a chief complaint of cough. Patient reports he had a cough that is productive with yellow to green sputum for about 1 week. He reports runny nose, sore throat and decreased appetite. He did not receive the influenza vaccine this year. Patient reports he has been taking Tylenol and yyol-[id number]-[id number] medications with little relief. Denies sick contacts. - REPRODUCTIVE Reproductive: DENIES: : Past Medical History - General Information source: Patient, Relative - Social History Smoking Status: Current Every Day Smoker Cigarette use (# per day): Yes - Vapes Smoking Education Provided: Yes Lives with: Family Family History: None Patient has suicidal ideation: No Patient has homicidal ideation: No - Past Medical History Cardiac Medical History: Reports: None Pulmonary Medical History: Reports: None EENT Medical History: Reports: None Neurological Medical History: Reports: None Endocrine Medical History: Reports: None Renal/ Medical History: Reports: None. 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 IN LAST 30 DAYS: No - HEENT HEENT: Atraumatic, Normal ENT Exam, Normocephalic, PERRLA Notes: Tonsils are slightly erythematous without exudate. Uvula is midline. - NECK Neck: Normal Inspection Notes: No cervical lymphadenopathy. - RESPIRATORY Respiratory: Breath Sounds Normal, No Respiratory Distress Notes: Intermittent productive cough throughout examination. - CARDIOVASCULAR Cardiovascular: Regular Rate, Regular Rhythm Notes: Patient is chest wall is tender with palpation. - GI/ABDOMEN Gastrointestinal: Abdomen Soft, Abdomen Non-Tender, Normal Bowel Sounds - MUSCULOSKELETAL/EXTREMETIES Musculoskeletal/Extremeties: FROM - NEURO Level of Consciousness: Awake, Alert, Appropriate - DERM Integumentary: Warm, Dry, No Rash Course - Re-evaluation Re-evalutation: 07/28/19 21:06 I did explain to the patient that I am going to treat him for a right lobe pneumonia. We will place the patient on a Z-Cooper. Also give patient Brayan Cruz patient did receive Decadron and Toradol here in the emergency department. Patient left with mother. Patient does have a follow-up appointment with his primary care physician on August 06. I did inform patient if he is not feeling any better or gets any shortness of breath, severe chest pain, uncontrollable fever despite taking antipyretics that he needs to return to the emergency department. Patient and mother verbalized understanding. Patient stable for discharge. - Vital Signs Vital signs: Temp Pulse Resp BP Pulse Ox 99.5 F 102 H 16 126/71 H 100 07/28/19 18:33 07/28/19 18:33 07/28/19 18:33 07/28/19 18:33 07/28/19 18:33 - Laboratory Laboratory results interpreted by me: 07/28/19 20:56 Laboratory 07/28/19 07/28/19 19:49 19:49 Influenza A (Rapid) NEGATIVE Influenza B (Rapid) NEGATIVE Group A Strep Rapid NEGATIVE - Diagnostic Test Radiology reviewed: Reports reviewed Radiology results interpreted by fl: 07/28/19 20:52 Chest X-Ray 07/28/19 19:30 IMPRESSION: Patchy alveolar space disease right lung, likely infectious inflammatory copyright 2011 [employer]- All Rights Reserved Discharge - Discharge Clinical Impression: Chills Pneumonia Qualifiers: Pneumonia type: due to unspecified organism Laterality: right Lung location: upper lobe of lung Qualified Code(s): J18.9 - Pneumonia, unspecified organism Condition: Stable Disposition: HOME, SELF-CARE Additional Instructions: *Today was seen in the emergency department for body aches, fever, cough. We did obtain a chest x-ray which was positive for possible pneumonia on the right side. You will be placed on oral antibiotics. Please take this for its full course. Please continue to alternate Tylenol and ibuprofen. Please return to the emergency department if after your course of antibiotics you do not feel any better, have any persistent vomiting, increased shortness of breath, confusion or lethargy. Please follow-up with your primary care physician for recheck. Pneumonia Your examination indicates that you have pneumonia. This is an infection of the lung tissue, usually caused by bacteria or a virus. Symptoms include cough, fever, shaking chills, chest pain, shortness of breath, and coughing up bloody sputum. Treatment for bacterial pneumonia includes rest, antibiotics for 10 to 14 days, increasing your clear liquid intake, a cool mist humidifier at your bedside, and fever medication. Often, a repeat chest X-ray is performed in a few weeks--even if you feel better--to ascertain whether the infection has completely resolved and no underlying lung problem is present. You should call the physician if you develop persistent vomiting, high fever that does not respond to fever medication, increasing shortness of breath, confusion, or lethargy. Also, failure to improve within two to three days is an indication for re-examination. Prescriptions: Benzonatate [Tessalon Perles 100 mg Capsule] 100 mg PO Q8HP PRN #40 capsule PRN Reason: Azithromycin [Zithromax 250 mg Tablet] 250 mg PO ASDIR PRN #6 tablet PRN Reason: Forms: Return to Work Referrals: CARLOS SETHI MD [Primary Care Provider] - Follow up as needed
[2019-07-28 20:54] VITALS: BP 122/71
== END 2019-07-28 21:10 | disposition home or self-care (01) ==
LOC: ER 18:13
DX: J18.9 Pneumonia, unspecified organism (principal); R68.83 Chills (without fever); F17.299 Nicotine dependence, other tobacco product, with unspecified nicotine-induced disorders
CPT/HCPCS: 99283; 96372; 87070; 87880; 87804; 71046; J1885; J1100

== ENCOUNTER 2019-09-15 14:02 | Emergency (ER) | payer BC ==
--- NOTE | 2019-09-15 14:56 | ER Document Report ---
ED Medical Screen (RME) - General Chief Complaint: Abdominal Pain Stated Complaint: UPPER ABDOMINAL PAIN Primary Care Provider: CARLOS SETHI MD [Primary Care Provider] - Follow up as needed Notes: Patient is a 28-year-old white male with no significant past medical history who presents to the emergency department with a chief complaint of epigastric abdominal pain that began this morning. He describes it as a "tearing" sensation. States he took some Tylenol without any improvement. States his dad advised he come for evaluation. He denies any vomiting or diarrhea. No nausea or chest pain or shortness of breath. I have treated and performed a rapid initial assessment of this patient. A comprehensive ED assessment and evaluation of the patient, analysis of test results and completion of medical decision making process will be conducted by additional ED providers. PHYSICAL EXAMINATION: GENERAL: Well-appearing, well-nourished and in no acute distress. A&Ox4. Answers questions appropriately. Abdomen: Normal bowel sounds in all quadrants. Tenderness to the left upper and right upper quadrant. No pulsatile masses or bruits TRAVEL OUTSIDE OF THE U[place] 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
--- NOTE | 2019-09-15 15:38 | EKG REPORT ---
SEVERITY:- NORMAL ECG - SINUS RHYTHM : Confirmed by: Sandra Lopes MD 15-Sep-2019 15:37:56
[2019-09-15 15:57] LABS: ABSOLUTE LYMPHOCYTES (AUTO) 1.9 10^3/uL (0.5-4.7); ABSOLUTE MONOCYTES (AUTO) 0.6 10^3/uL (0.1-1.4); ABSOLUTE NEUT (AUTO) 7.1 10^3/uL (1.7-8.2); BASOPHILS % (AUTO) 0.4 % (0-2); EOSINOPHILS % (AUTO) 0.2 % (0-6); HEMATOCRIT 46.5 % (37.9-51.0); HEMOGLOBIN 16.5 g/dL (13.5-17.0); LYMPHOCYTES % (AUTO) 19.9 % (13-45); MEAN CORPUSCULAR HEMOGLOBIN 31.3 pg (27.0-33.4); MEAN CORPUSCULAR HGB CONC 35.6 g/dL (32.0-36.0); MEAN CORPUSCULAR VOLUME 88 fl (80-97); MONOCYTES % (AUTO) 6.6 % (3-13); PLATELET COUNT 347 10^3/uL (150-450); RED BLOOD COUNT 5.29 10^6/uL (4.35-5.55); RED CELL DISTRIBUTION WIDTH 13.2 % (11.5-14.0); SEGMENTED NEUTROPHILS % (AUTO) 72.9 % (42-78); TOTAL CELLS COUNTED % (AUTO) 100 %; WHITE BLOOD COUNT 9.7 10^3/uL (4.0-10.5)
[2019-09-15 16:22] LABS: ALBUMIN 5.1 g/dL (3.5-5.0); ALKALINE PHOSPHATASE 65 U/L (38-126); ANION GAP 13 (5-19); ASPARTATE AMINO TRANSFERASE 36 U/L (17-59); BILIRUBIN,DIRECT 0.3 mg/dL (0.0-0.4); BILIRUBIN,TOTAL 0.6 mg/dL (0.2-1.3); BLOOD UREA NITROGEN 8 mg/dL (7-20); CARBON DIOXIDE 26 mmol/L (22-30); CHLORIDE 103 mmol/L (98-107); GLUCOSE 82 mg/dL (75-110); POTASSIUM 4.2 mmol/L (3.6-5.0); TOTAL PROTEIN 8.8 g/dL (6.3-8.2)
[2019-09-15] MEDS ORDERED: MAG HYDROX/AL HYDROX/SIMETH SUSP 30 ML UDCUP PO ONE (18:24)
[2019-09-15] MEDS ORDERED: LIDOCAINE 2% VISCOUS SOLN 15 ML UDCUP PO ONE (18:24)
--- NOTE | 2019-09-15 18:27 | ER Document Report ---
ED General - General Chief Complaint: Abdominal Pain Stated Complaint: UPPER ABDOMINAL PAIN Primary Care Provider: CARLOS SETHI MD [Primary Care Provider] - Follow up as needed Notes: Patient is a 28-year-old white male with no significant past medical history presents to the emergency department with a chief complaint of upper abdominal pain that began this morning. He describes it as a tearing pain in the upper abdomen. States his father encouraged him to come for evaluation. He denies any associated symptoms. Denies any fever, nausea, vomiting with diarrhea, chills, night sweats. Denies any chest pain or shortness of breath. No urinary complaints. No falls, blunt injury or trauma. Denies any cardiovascular history. TRAVEL OUTSIDE OF THE [place] 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, Hx Testicular Surgery - Immunizations Immunizations up to date: Yes Hx Diphtheria, Pertussis, Tetanus Vaccination: Yes Review of Systems - Review of Systems Gastrointestinal: Abdominal pain -: Yes All other systems reviewed and negative Physical Exam - Vital signs Vitals: Temp Pulse Resp BP Pulse Ox 97.5 F 84 20 142/89 H 99 09/15/19 14:23 09/15/19 14:23 09/15/19 14:23 09/15/19 14:23 09/15/19 14:23 - General General appearance: Appears well, Alert In distress: None - HEENT Head: Normocephalic, Atraumatic Eyes: Normal Conjunctiva: Normal Eyelashes: Normal Pupils: PERRL Ears: Normal External canal: Normal Tympanic membrane: Normal Sinus: Normal Nasal: Normal Mouth/Lips: Normal Mucous membranes: Normal Pharynx: Normal Neck: Normal - Respiratory Respiratory status: No respiratory distress Chest status: Nontender Breath sounds: Normal Chest palpation: Normal - Cardiovascular Rhythm: Regular Heart sounds: Normal auscultation Murmur: No - Abdominal Inspection: Normal Distension: No distension Bowel sounds: Normal Tenderness: Nontender Organomegaly: No organomegaly Notes: No palpable pulsatile masses. No bruits. - Neurological Neuro grossly intact: Yes Cognition: Normal Orientation: AAOx4 [place] Coma Scale Eye Opening: Spontaneous [place] Coma Scale Verbal: Oriented [place] Coma Scale Motor: Obeys Commands Minnie Coma Scale Total: 15 Speech: Normal Motor strength normal: LUE, RUE, LLE, RLE Sensory: Normal - Psychological Associated symptoms: Normal affect, Normal mood - Skin Skin Temperature: Warm Skin Moisture: Dry Skin Color: Normal Course - Re-evaluation Re-evalutation: 09/15/19 22:26 Ultrasound showing no definitive stone is suspected on CT. There is some gallbladder sludge in the neck of the gallbladder however the gallbladder is not distended. Discussed the findings with the patient. These are likely the source of his discomfort. Counseled him regarding the importance of outpatient follow-up with his primary doctor for possible referral to general surgery for evaluation of possible elective removal. Patient's pain is improved at this time. He is not nauseous or vomiting. He is stable and appropriate for discharge and outpatient follow-up. I counseled him at length regarding the importance of outpatient follow-up and advised that he return here or any ER i mmediately with any new, persistent or worsening symptoms. He verbalized understood and agreed. - Vital Signs Vital signs: Temp Pulse Resp BP Pulse Ox 97.5 F 84 20 142/89 H 99 09/15/19 14:23 09/15/19 14:23 09/15/19 14:23 09/15/19 14:23 09/15/19 14:23 - Laboratory Result Diagrams: 09/15/19 15:43 09/15/19 15:43 Laboratory results interpreted by me: 09/15/19 15:43 Total Protein 8.8 H Albumin 5.1 H Discharge - Discharge Clinical Impression: Gallbladder attack Condition: Stable Disposition: HOME, SELF-CARE Instructions: Gallbladder Disease ([facility]) Additional Instructions: Follow-up with your regular doctor in 2 to 3 days for reevaluation. Return here or any ER immediately with any new, persistent or worsening symptoms. Prescriptions: Ondansetron [Zofran Odt 4 mg Tablet] 1 - 2 tab PO Q4H PRN #15 tab.rapdis PRN Reason: For Nausea/Vomiting Referrals: CARLOS SETHI MD [Primary Care Provider] - Follow up as needed
--- NOTE | 2019-09-15 19:45 | RADIOLOGY REPORT (SQ) ---
EXAM DESCRIPTION: CT ABD/PELVIS WITH IV ONLY COMPLETED DATE/TIME: 09/15/2019 7:33 pm REASON FOR STUDY: upper abd pain COMPARISON: None. TECHNIQUE: CT scan of the abdomen and pelvis performed using helical scanning technique with dynamic intravenous contrast injection. No oral contrast. Images reviewed with lung, soft tissue, and bone windows. Reconstructed coronal and sagittal MPR images reviewed. Delayed images for evaluation of the urinary system also acquired. All images stored on PACS. All CT scanners at this facility use dose modulation, iterative reconstruction, and/or weight based d osing when appropriate to reduce radiation dose to as low as reasonably achievable (ALARA). [facility]: Dose Right [facility]: CareDose [facility]: Dose Right [facility]: Teradose 4D [facility]: [employer] CONTRAST TYPE AND DOSE: contrast/concentration: Isovue 350.00 mg/ml; Total Contrast Delivered: 97.0 ml; Total Saline Delivered: 72.0 ml RENAL FUNCTION: BUN 8 creatinine 0.8 RADIATION DOSE: CT Rad equipment meets quality standard of care and radiation dose reduction techniq ues were employed. CTDIvol: 12.4 - 16.6 mGy. DLP: 1510 mGy-cm.. LIMITATIONS: None. FINDINGS: LOWER CHEST: No significant findings. No nodules or infiltrates. LIVER: Normal size. No masses. No dilated ducts. SPLEEN: Normal size. No focal lesions. PANCREAS: No masses. No significant calcifications. No adjacent inflammation or peripancreatic fluid collections. Pancreatic duct not dilated. GALLBLADDER: Cannot exclude a low-density gallstone in the neck of the gallbladder with rim-like calc ification. ADRENAL GLANDS: No significant masses or asymmetry. RIGHT KIDNEY AND URETER: No solid masses. No significant calcifications. No hydronephrosis or hyd roureter. LEFT KIDNEY AND URETER: No solid masses. No significant calcifications. No hydronephrosis or hydr oureter. AORTA AND VESSELS: No aneurysm. No dissection. Renal arteries, SMA, celiac without stenosis. RETROPERITONEUM: No retroperitoneal adenopathy, hemorrhage or masses. BOWEL AND PERITONEAL CAVITY: No masses or inflammatory changes. No free fluid or peritoneal masses. APPENDIX: Normal. PELVIS: No mass. No free fluid. Normal bladder. ABDOMINAL WALL: No masses. No hernias. BONES: Anterolisthesis of L5 on S1. OTHER: No other significant finding. IMPRESSION: Cannot exclude a low-density gallstone in the neck of the gallbladder. Consider ultraso und further evaluation. Anterolisthesis of L5 on S1. TECHNICAL DOCUMENTATION: JOB ID: [id number] Quality ID # [id number]: Final reports with documentation of one or more dose reduction techniques (e.g., Au tomated exposure control, adjustment of the mA and/or kV according to patient size, use of iterative reconstruction technique) 2010 [employer]- All Rights Reserved Reading location - IP/workstation name: [email or web address]
[2019-09-15] MEDS ORDERED: MORPHINE SULFATE 10 MG/ML INJ IV ONE (19:52)
[2019-09-15] MEDS ORDERED: ONDANSETRON HCL INJ/PF 4 MG/2 ML SDV IV ONE (19:52)
--- NOTE | 2019-09-15 21:49 | RADIOLOGY REPORT (SQ) ---
EXAM DESCRIPTION: Abdominal ultrasound CLINICAL HISTORY: 28 years Male; pain, ? stone on CT possible gallstone in the neck of the gallbladder. Upper abdominal pain. TECHNIQUE: Abdominal ultrasound was performed. COMPARISON: CT of the abdomen and pelvis with contrast performed earlier in the day. FINDINGS: Pancreas: Pancreas is not well seen secondary to overlying bowel gas. Liver: The liver measures 13.3 cm in length. Hepatic veins are patent. Portal vein is patent with hepatopedal flow. No biliary dilatation.. Gallbladder: In the neck of the gallbladder is an 8 mm hyperechoic area which does not shadow. This may represent focal sludge. The gallbladder wall is 2 mm. No pericholecystic fluid. No sonographic Saunders's. Common bile duct: 3.5 mm. Right kidney: Measures 9.4 x 4.5 x 5.1 cm. blood flow is seen throughout the kidney. Echogenicity is normal.. No hydronephrosis. Aorta:Visualized portions are within normal limits. IVC: Visualized portions are within normal limits. Ascites: No free fluid. IMPRESSION: 8 mm hyperechoic area in the neck of the gallbladder which may represent a focal area of sludge. This does not shadow and is unlikely to be a stone. No gallbladder wall thickening or sonographic Saunders's. No biliary dilatation.
[2019-09-15 22:44] VITALS: BP 137/82
== END 2019-09-15 22:42 | disposition home or self-care (01) ==
LOC: ER 14:02
DX: K82.9 Disease of gallbladder, unspecified (principal); R10.30 Lower abdominal pain, unspecified; R10.10 Upper abdominal pain, unspecified
CPT/HCPCS: 93005; 99284; 96374; 96375; 36415; 83690; 85025; 80053; 84484; 76705; 74177; 93010; J3490; J2270; J2405

== ENCOUNTER 2019-11-26 10:27 | Day surgery (SDC) | payer BC ==
[2019-11-25 09:21] LABS: HEMATOCRIT 45.1 % (37.9-51.0); HEMOGLOBIN 15.9 g/dL (13.5-17.0); MEAN CORPUSCULAR HGB CONC 35.2 g/dL (32.0-36.0); MEAN CORPUSCULAR VOLUME 88 fl (80-97); PLATELET COUNT 336 10^3/uL (150-450); RED BLOOD COUNT 5.12 10^6/uL (4.35-5.55); RED CELL DISTRIBUTION WIDTH 13.2 % (11.5-14.0); WHITE BLOOD COUNT 6.8 10^3/uL (4.0-10.5)
[2019-11-25 09:46] LABS: ALBUMIN 4.7 g/dL (3.5-5.0); ALKALINE PHOSPHATASE 66 U/L (38-126); AMYLASE 55 U/L (30-110); ANION GAP 10 (5-19); ASPARTATE AMINO TRANSFERASE 30 U/L (17-59); BILIRUBIN,TOTAL 0.4 mg/dL (0.2-1.3); BLOOD UREA NITROGEN 11 mg/dL (7-20); CALCIUM 9.6 mg/dL (8.4-10.2); CARBON DIOXIDE 26 mmol/L (22-30); CHLORIDE 102 mmol/L (98-107); GLUCOSE 78 mg/dL (75-110); POTASSIUM 4.4 mmol/L (3.6-5.0); TOTAL PROTEIN 7.7 g/dL (6.3-8.2)
[~2019-11-26 10:27] MED LIST: ACETAMINOPHEN 325 MG TABLET PO PRN; CEFAZOLIN 1 GM/D5W RTU 1 GM/50 ML RTUPB IV ONE; CEFAZOLIN 1 GM/D5W RTU 1 GM/50 ML RTUPB IV PRN; DEXAMETHASONE SOD PHOSPHATE INJ 4 MG/1 ML VIAL ONE; GLYCOPYRROLATE 1 MG/5 ML VIAL ONE; HYDROMORPHONE HCL INJ/PF 2 MG/ML AMPULE ONE; KETOROLAC TROMETHAMINE 60 MG/2 ML SDV ONE; LACTATED RINGERS 1000 ML IV PRN; LIDOCAINE 2% INJ-PF (20 MG/ML) 2 ML AMPUL ONE; METOCLOPRAMIDE HCL INJ/PF 10 MG/2 ML SDV ONE; MIDAZOLAM 2 MG/2 ML INJ ONE; NEOSTIGMINE METHYLSULFATE 10 MG/10 ML VIAL ONE; ONDANSETRON HCL INJ/PF 4 MG/2 ML SDV ONE; PROPOFOL INJ 200 MG/20 ML VIAL IV ONE; ROCURONIUM BROMIDE INJ 50 MG/5 ML VIAL IV ONE
[2019-11-26] MEDS ORDERED: BUPIVACAINE HCL 0.25 % INJ/PF (2.5 MG/1 ML) 30 ML VIAL ONE (11:13)
[2019-11-26] MEDS ORDERED: MEPERIDINE HCL/PF INJ 25 MG/1 ML DISP.SYRIN IV PRN (11:43)
[2019-11-26] MEDS ORDERED: FENTANYL CITRATE INJ/PF 100 MCG/2 ML AMPUL IV PRN ×3 (11:43)
[2019-11-26] MEDS ORDERED: ONDANSETRON HCL INJ/PF 4 MG/2 ML SDV IV PRN (11:43)
[2019-11-26] MEDS ORDERED: OXYCODONE-ACETAMINOPHEN 5-325 MG TABLET PO PRN ×2 (11:43)
[2019-11-26] MEDS ORDERED: PROMETHAZINE HCL INJ 25 MG/1 ML VIAL IV PRN ×2 (11:43)
[2019-11-26] MEDS ORDERED: DIPHENHYDRAMINE HCL 50 MG/ML VIAL IV PRN (11:43)
[2019-11-26] MEDS ORDERED: HYDROMORPHONE HCL INJ/PF 2 MG/ML AMPULE ONE (12:05)
--- NOTE | 2019-11-26 12:36 | Operative Report ---
Operative Report DATE OF SURGERY: 11/26/19 PREOPERATIVE DIAGNOSIS: Symptomatic cholelithiasis with cholecystitis POSTOPERATIVE DIAGNOSIS: Same OPERATION: Laparoscopic cholecystectomy SURGEON: ASHER MONTALVO LAY MIDWIFE: PAULA CRUZ ANESTHESIA: GA TISSUE REMOVED OR ALTERED: 1 gallbladder COMPLICATIONS: None INTRAOPERATIVE FINDINGS: See below PROCEDURE: After obtaining informed consent, the patient was taken to the operating room. General Anesthesia was induced; the arms were extended, and the abdomen was exposed, and prepped and draped in a sterile fashion. Instrumentation was set up for laparoscopic cholecystectomy. Surgical plan and surgical timeout were conducted. Initially , A vertical incision was made above the umbilicus, and and attempt was made to insert the Veress needle into the peritoneal cavity, however due to resistance, this approach was aborted. The right upper quadrant incision was made with a 15 blade and a varies needle was inserted the peritoneal cavity pneumoperitoneum was established. A 5 mm port was established after removing the needle and a 5 mm flexible scope was inserted. Under direct visualization peritoneal cavity was inspected and there was no evidence of vascular or visceral injury. 3 additional ports were placed one in the subxiphoid, one above the umbilicus at the site of the initial incision and a fourth port in the lateral subcostal space. A grasper was placed on the fundus of the gallbladder and the gallbladder is elevated over the right surface of the liver; a second grasper was used to grasp the infundibulum of the gallbladder. Visualization of the hepato ileal area anatomy appeared normal. The neck of the gallbladder and junction with the cystic duct was dissected out. The peritoneal reflection was opened with hook cautery, and a small branching artery between the cystic duct and the dominant cystic artery was dissected out, clipped proximally and distally and divided with scissors. We now opened the triangle of Calot by dividing the peritoneal reflection on both the medial and lateral sides of the cystic duct infundibular junction. The critical view was obtained. Photos were taken. We now milked the cystic duct of any possible stones, clipped the cystic duct proximally 2 times, once distally and divided the duct with scissors. Photos were taken again. The dominant cystic artery was in its usual location. It was photographed, dissected out, and freed up so that it was suspended solely from the bed of the liver, and the gallbladder. It was clipped twice proximally once distally divided with scissors. The gallbladder was now removed from the undersurface of the liver using hook cautery dissection. Graspers were repositioned and the gallbladder was removed uneventfully from the abdominal cavity through the super umbilical port site incision. The specimen was examined, then passed off to pathology for permanent analysis. We returned to the peritoneal cavity to check for bleeding, and evidence of bile leak, and there was none. We Confirmed satisfactory placement of clips on cystic duct and cystic artery were secured . We irrigated the peritoneal cavity of some loose bile and aspirated satisfactorily. At this point we felt the operation was complete. The subcutaneous tissue was then anesthetized with quarter percent Marcaine Sponge and needle counts are correct. All ports removed under direct visualization pneumoperitoneum evacuated, the supraumbili theron port site was closed with a 3-0 Vicryl, and 5 mm port wounds closed with 3-0 Vicryl suture, benzoin and Steri-Strips. The patient was extubated, and taken to the recovery room in stable condition. The physician medical assistant dermatology, Ms. Woodson, provided assistance during this case by: Assisting and port insertion, retracting tissue, instillation of local anesthesia and closure of skin incisions.
--- NOTE | 2019-11-26 12:38 | Discharge Summary ---
Discharge Summary (SDC) - Discharge Final Diagnosis: Symptomatic cholelithiasis with cholecystitis Date of Surgery: 11/26/19 Discharge Date: 11/26/19 Condition: Good Treatment or Instructions: Patient may resume preoperative medications, diet and activity. He is currently taking narcotics in the direction of a primary care provider. He may shower in 48 hours, and allow Steri-Strips to fall off. Follow-up with Dr. Shimon [facility] in 2 weeks Referrals: JUAN ANTONIO ALMONTE MD [Primary Care Provider] - Discharge Diet: As Tolerated Discharge Activity: Activity As Tolerated Home Care Assistance: None Needed Report the Following to Your Physician Immediately: Shortness of Breath, Increase in Pain, Fever over 101 Degrees
[2019-11-26] MEDS ORDERED: OXYCODONE-ACETAMINOPHEN 5-325 MG TABLET ONE (13:08)
[2019-11-26 15:34] VITALS: BP 119/83
== END 2019-11-26 14:25 | disposition home or self-care (01) ==
LOC: OROUT 10:27
PROVIDERS: ATTEND Surgery
DX: K81.1 Chronic cholecystitis (principal); Z03.818 Encounter for observation for suspected exposure to other biological agents ruled out
CPT/HCPCS: 36415; 82150; 85027; 87635; 80076; 80048; 88304 ×2; 47562; J2250; J0690; J1170; J2704; 790; J1100; J1885; J2405; J2710; J2765; J3490

== ENCOUNTER 2020-01-06 08:50 | Emergency (ER) | payer BC ==
[2020-01-06 09:43] LABS: APPEARANCE,URINE CLEAR; BILIRUBIN,URINE NEGATIVE (NEGATIVE); COLOR,URINE YELLOW; GLUCOSE, URINE NEGATIVE (NEGATIVE); KETONES,URINE NEGATIVE (NEGATIVE); LEUKOCYTE ESTERASE,URINE NEGATIVE (NEGATIVE); NITRITE,URINE NEGATIVE (NEGATIVE); PROTEIN,URINE NEGATIVE (NEGATIVE); UROBILINOGEN,URINE NEGATIVE mg/dL (<2.0)
[2020-01-06 09:44] LABS: ABSOLUTE LYMPHOCYTES (AUTO) 1.8 10^3/uL (0.5-4.7); ABSOLUTE MONOCYTES (AUTO) 0.6 10^3/uL (0.1-1.4); ABSOLUTE NEUT (AUTO) 3.2 10^3/uL (1.7-8.2); BASOPHILS % (AUTO) 0.3 % (0-2); EOSINOPHILS % (AUTO) 0.3 % (0-6); HEMATOCRIT 44.8 % (37.9-51.0); HEMOGLOBIN 15.4 g/dL (13.5-17.0); LYMPHOCYTES % (AUTO) 32.4 % (13-45); MEAN CORPUSCULAR HEMOGLOBIN 30.8 pg (27.0-33.4); MEAN CORPUSCULAR HGB CONC 34.3 g/dL (32.0-36.0); MEAN CORPUSCULAR VOLUME 90 fl (80-97); MONOCYTES % (AUTO) 11.3 % (3-13); PLATELET COUNT 300 10^3/uL (150-450); RED BLOOD COUNT 4.99 10^6/uL (4.35-5.55); RED CELL DISTRIBUTION WIDTH 13.3 % (11.5-14.0); SEGMENTED NEUTROPHILS % (AUTO) 55.7 % (42-78); TOTAL CELLS COUNTED % (AUTO) 100 %; WHITE BLOOD COUNT 5.7 10^3/uL (4.0-10.5)
[2020-01-06 09:58] LABS: ALBUMIN 4.4 g/dL (3.5-5.0); BLOOD UREA NITROGEN 6 mg/dL (7-20); CARBON DIOXIDE 27 mmol/L (22-30); CHLORIDE 101 mmol/L (98-107); GLUCOSE 83 mg/dL (75-110); NEONATAL BILIRUBIN RESULT 0.5 mg/dL (0.1-1.1); TOTAL PROTEIN 7.3 g/dL (6.3-8.2)
[2020-01-06 10:07] LABS: ALKALINE PHOSPHATASE 62 U/L (38-126); ANION GAP 9 (5-19); ASPARTATE AMINO TRANSFERASE 44 U/L (17-59); BILIRUBIN,TOTAL 0.5 mg/dL (0.2-1.3); CALCIUM 9.5 mg/dL (8.4-10.2); POTASSIUM 4.2 mmol/L (3.6-5.0)
[2020-01-06] MEDS ORDERED: LORAZEPAM 1 MG TABLET PO ONE (10:08)
--- NOTE | 2020-01-06 10:10 | ER Document Report ---
ED Psych Disorder / Suicide - General Chief Complaint: Suicidal Ideation Stated Complaint: PSYCH EVAL/SUICIDAL IDEATION Time Seen by Provider: 01/06/20 10:03 Primary Care Provider: JUAN ANTONIO ALMONTE MD [Primary Care Provider] - Follow up as needed Notes: Increasing anxiety. 29-year-old male presents inability to cope he states. No overt plan for suicide has no plan. But has had some fleeting thoughts that the world would be better off without him. Denies any inpatient psychiatric stabilization. Contacted his family doctor recommended evaluation in the emergency department. Patient denies all physical complaints TRAVEL OUTSIDE OF THE [place] IN LAST 30 DAYS: No - HPI Notes: Well-appearing 29-year-old male presents with increasing depression. Fleeting ideas of suicide but no overt plan. Patient has history of depression. Recently started on Prozac. Had previously been on Prozac. Volatility here like to get help with his mother. Denies all other physical complaints - Related Data Allergies/Adverse Reactions: No Known Allergies Allergy (Verified 01/06/20 08:53) Past Medical History - Social History Smoking Status: Current Every Day Smoker Chew tobacco use (# tins/day): No Frequency of alcohol use: None Drug Abuse: None Family History: None Patient has homicidal ideation: No - Past Medical History Cardiac Medical History: Denies: Hx Coronary Artery Disease, Hx Heart Attack, Hx Hypertension Pulmonary Medical History: Denies: Hx Asthma, Hx Bronchitis, Hx COPD, Hx Pneumonia Neurological Medical History: Denies: Hx Cerebrovascular Accident, Hx Seizures Renal/ Medical History: Denies: Hx Kidney Stones, Hx Peritoneal Dialysis Musculoskeletal Medical History: Denies Hx Arthritis Past Surgical History: Reports: Hx Bowel Surgery - pyloric stenosis repair 5 days old, Hx Herniorrhaphy - inguinal hernia repair remotely, Hx Open Heart Surgery - 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 RESPIRATORY: -cough, -SOB GASTROINTESTINAL: -abdominal pain, -nausea, -vomiting, -diarrhea GENITOURINARY: -dysuria, -hematuria MUSCULOSKELETAL: -back pain, -neck pain SKIN: -rash or skin lesions. HEMATOLOGIC: -easy bruising or bleeding. LYMPHATIC: -swollen, enlarged glands. NEUROLOGICAL: -altered mental status or loss of consciousness, -headache, - neurologic symptoms PSYCHIATRIC: positive anxiety ALL OTHER SYSTEMS REVIEWED AND NEGATIVE. Physical Exam - Vital signs Vitals: Temp Pulse Resp BP Pulse Ox 98.0 F 91 14 137/89 H 100 01/06/20 08:54 01/06/20 08:54 01/06/20 08:54 01/06/20 08:54 01/06/20 08:54 - Notes Notes: PHYSICAL EXAMINATION: GENERAL: Well-appearing, well-nourished and in no acute distress. HEAD: Atraumatic, normocephalic. EYES: Pupils equal round and reactive to light, extraocular movements intact, sclera anicteric, conjunctiva are normal. ENT: nares patent, oropharynx clear without exudates. Moist mucous membranes. NECK: Normal range of motion, supple without lymphadenopathy LUNGS: Breath sounds clear to auscultation bilaterally and equal. No wheezes rales or rhonchi. HEART: Regular rate and rhythm without murmurs ABDOMEN: Soft, nontender, normoactive bowel sounds. No guarding, no rebound. No masses appreciated. EXTREMITIES: Normal range of motion, no pitting or edema. No cyanosis. NEUROLOGICAL: Cranial nerves grossly intact. Normal speech, normal gait. Normal sensory and motor exams. PSYCH: Normal mood, normal affect. SKIN: Warm, Dry, normal turgor, no rashes or lesions noted. Course - Re-evaluation Re-evalutation: 01/06/20 10:10 Appearing man no acute distress presents with increasing anxiety. Fleeting thoughts of suicide. Will give oral Ativan. Initiate labs. Arrange psychiatric screening 01/06/20 15:04 Patient drug screen clear. Patient will be admitted or discharged at the discretion of psychiatry. - Vital Signs Vital signs: Temp Pulse Resp BP Pulse Ox 98.0 F 91 14 137/89 H 100 01/06/20 08:54 01/06/20 08:54 01/06/20 08:54 01/06/20 08:54 01/06/20 08:54 - Laboratory Result Diagrams: 01/06/20 09:22 01/06/20 09:22 Laboratory results interpreted by me: 07/07/20 09:22 Sodium 136.8 L BUN 6 L Discharge - Discharge Clinical Impression: Depression Qualifiers: Depression Type: unspecified Qualified Code(s): F32.9 - Major depressive disorder, single episode, unspecified Disposition: PSYCH HOSP/UNIT Referrals: JUAN ANTONIO ALMONTE MD [Primary Care Provider] - Follow up as needed
[2020-01-06 10:19] LABS: URINE AMPHETAMINES SCREEN NEGATIVE; URINE BARBITURATES SCREEN NEGATIVE; URINE BENZODIAZEPINES SCREEN NEGATIVE; URINE COCAINE SCREEN NEGATIVE; URINE MARIJUANA (THC) SCREEN NEGATIVE; URINE METHADONE SCREEN NEGATIVE; URINE PHENCYCLIDINE SCREEN NEGATIVE
--- NOTE | 2020-01-06 12:13 | EKG REPORT ---
SEVERITY:- NORMAL ECG - SINUS RHYTHM : Confirmed by: Tushar Velez MD 06-Jan-2020 12:12:59
[2020-01-06] MEDS ORDERED: NICOTINE 21 MG/24 HR PATCH.TD24 TD ONE (15:50)
[2020-01-06] MEDS: OLANZAPINE 2.5 MG TABLET PO SCH (17:21)
[2020-01-06] MEDS: OLANZAPINE 5 MG TAB.RAPDIS PO ONE ×2 (17:31→17:49)
--- NOTE | 2020-01-06 18:44 | PSYCHOLOGICAL NOTE ---
Psych Note - Psych Note Date seen by psych provider: 01/06/20 Psych Note: Reason For Consult: Consent Permissions: Medication recommendations per [facility]'s contracted psychiatrist Dr. Taniya LEWIS are as follows Zyprexa 5 mg once now Zyprexa 2.5 mg twice daily Impression\plan: Patient is recommended for 24-hour petition for evaluation. Patient reports suicidal ideation with access to multiple weapons in the home. Patient does not have a history of thoughts of wanting to harm himself and r eports recent start of medication. Patient is in need of medication stabilization. Medication recommendations have been provided. Patient be reevaluated. Dr. Cyr was consulted to care management of this patient; attending physicians in agreement with recommendations and disposition.
[2020-01-07] MEDS: OLANZAPINE 2.5 MG TABLET PO SCH (09:52)
--- NOTE | 2020-01-07 12:17 | PSYCHOLOGICAL NOTE ---
Psych Note - Psych Note Date seen by psych provider: 01/07/20 Time seen by psych provider: 11:50 Psych Note: Reason for Consult: Suicidal ideation Consent Permissions:Patient's father at bedside per patient's request Medication recommendations per [facility]'s contracted psychiatrist Dr. Taniya LEWIS are as follows: Zyprexa 2.5 mg twice daily Impression/plan: patient is recommended for rescind of IVC and is cleared from acute psychiatric services.
[2020-01-07 12:57] VITALS: BP 118/80
--- NOTE | 2020-01-07 13:38 | ER Document Report ---
Doctor's Note Notes: 01/07/20 13:37 Patient's vital signs are previous labs, diagnostic imaging reviewed. Reviewed mental health notes, nurses notes and previous vital signs. Patient is in no distress at this time denies any SI or HI. Is medically cleared. General: Alert, oriented, pleasant Heart: Regular rate, rhythm Lungs: Clear to auscultation bilaterally Psych: normal Affect A&P: Patient is medically cleared. Will receive a prescription for Zyprexa 2.5 mg twice daily for 2 weeks per mental health recommendation. Will order this for the patient.
== END 2020-01-07 13:45 | disposition home or self-care (01) ==
LOC: ER 08:50
DX: F32.9 Major depressive disorder, single episode, unspecified (principal); F41.9 Anxiety disorder, unspecified; R45.851 Suicidal ideations; F17.200 Nicotine dependence, unspecified, uncomplicated
CPT/HCPCS: 93005; 99285; 36415; 85025; 80053; 81001; 80307; 93010; J3490 ×3

== ENCOUNTER 2020-01-10 15:18 | Emergency (ER) | payer BC ==
[2020-01-10] MEDS ORDERED: HYDROCODONE/ACETAMINOPHEN 5-325 MG TABLET PO ONE (16:12)
--- NOTE | 2020-01-10 16:15 | ER Document Report ---
HPI - HPI Patient complains to provider of: Right Foot injury Time Seen by Provider: 01/10/20 16:09 Pain Level: 5 Context: 29-year-old male past medical history significant for depression presents to the emergency room complaining of right foot pain. Patient states he was working on an axle assembly for vehicle when it fell landing on his right foot. Patient was wearing tennis shoes at the time. States is unable to bear weight secondary to the pain. Did not take any medications for pain. Associated Symptoms: None Exacerbated by: Movement, Walking Relieved by: Denies - ROS Systems Reviewed and Negative: Yes All other systems reviewed and negative - EENT EENT: DENIES: Sore Throat, Ear Pain, Eye problems - NEURO Neurology: DENIES: Headache, Weakness, Vision blurred, Dizzinesss / Vertigo - CARDIOVASCULAR Cardiovascular: DENIES: Chest pain - RESPIRATORY Respiratory: DENIES: Trouble Breathing, Coughing - GASTROINTESTINAL Gastrointestinal: DENIES: Abdominal Pain, Black / Bloody Stools - URINARY Urinary: DENIES: Dysuria, Urgency, Frequency - REPRODUCTIVE Reproductive: DENIES: : - MUSCULOSKELETAL Musculoskeletal: REPORTS: Extremity pain - DERM Skin Color: Normal, [place] Past Medical History - General Information source: Patient - Social History Smoking Status: Current Every Day Smoker Frequency of alcohol use: None Drug Abuse: None Family History: None Patient has homicidal ideation: No - Past Medical History Cardiac Medical History: Denies: Hx Coronary Artery Disease, Hx Heart Attack, Hx Hypertension Pulmonary Medical History: Denies: Hx Asthma, Hx Bronchitis, Hx COPD, Hx Pneumonia Neurological Medical History: Denies: Hx Cerebrovascular Accident, Hx Seizures Renal/ Medical History: Denies: Hx Kidney Stones, Hx Peritoneal Dialysis Musculoskeletal Medical History: Denies Hx Arthritis Past Surgical History: Reports: Hx Bowel Surgery - 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 IN LAST 30 DAYS: No - HEENT HEENT: Atraumatic, Normocephalic - NECK Neck: Normal Inspection, Supple, Thyroid Normal - RESPIRATORY Respiratory: Breath Sounds Normal, No Respiratory Distress, Chest Non-Tender - CARDIOVASCULAR Cardiovascular: Regular Rate, Regular Rhythm, No Murmur - MUSCULOSKELETAL/EXTREMETIES Musculoskeletal/Extremeties: Tender - Tenderness on palpation to the right dorsal midfoot. Painful range of motion with flexion extension as well as eversion and inversion of the right foot. No obvious deformity noted. - NEURO Level of Consciousness: Awake, Alert, Appropriate Motor/Sensory: No Motor Deficit, No Sensory Deficit Notes: Positive right pedal pulse. Capillary refill less than 3 seconds. Gait not tested secondary to pain - DERM Integumentary: Warm, Dry, No Rash Course - Re-evaluation Re-evalutation: 01/10/20 16:59 Patient is resting comfortably with decreased pain. Reviewed x-ray results with patient. Patient was counseled to rest, ice, elevate his foot. Take Tylenol and or Motrin as needed for pain. Weightbearing as tolerated. Patient has his own crutches to use. Outpatient follow-up with orthopedics if not improving in 2 to 3 days. Patient was provided with on-call physician. Patient was given strict return to the emergency room guidelines. Return for any new or worsening symptoms. All questions were answered. Patient verbalized understanding and agrees with plan of care. 01/10/20 18:00 - Vital Signs Vital signs: Temp Pulse Resp BP Pulse Ox 98.5 F 95 16 111/74 97 01/10/20 15:45 01/10/20 15:45 01/10/20 15:45 01/10/20 15:45 01/10/20 15:45 - Diagnostic Test Radiology reviewed: Reports reviewed Discharge - Discharge Clinical Impression: Contusion of foot, right Qualifiers: Encounter type: initial encounter Qualified Code(s): S90.31XA - Contusion of right foot, initial encounter Condition: Stable Disposition: HOME, SELF-CARE Instructions: Contusion ([facility]) Additional Instructions: Rest, ice, elevate right foot. Take Tylenol and Motrin as needed for pain. Weightbearing as tolerated. Follow-up with orthopedics if not improving in 2 to 3 days. Return to the emergency room for any new or worsening symptoms. Referrals: JUAN ANTONIO ALMONTE MD [COMMUNITY BASED STAFF] - Follow up as needed LUIS MIGUEL BANKS JR, DO [ACTIVE PROVISIONAL STAFF] - Follow up as needed
--- NOTE | 2020-01-10 16:45 | RADIOLOGY REPORT (SQ) ---
EXAM DESCRIPTION: FOOT RIGHT COMPLETE IMAGES COMPLETED DATE/TIME: 01/10/2020 4:37 pm REASON FOR STUDY: injury COMPARISON: None. NUMBER OF VIEWS: Three views. TECHNIQUE: AP, lateral and oblique radiographic images acquired of the right foot. LIMITATIONS: None. FINDINGS: MINERALIZATION: Normal. BONES: No acute fracture or dislocation. No worrisome bone lesions. Type 2 os naviculare. Calcanea l spur. JOINTS: No effusions. SOFT TISSUES: No soft tissue swelling. No foreign body. OTHER: No other significant finding. IMPRESSION: No identifiable acute osseous abnormality of the right foot. TECHNICAL DOCUMENTATION: JOB ID: [id number] 2010 [employer]- All Rights Reserved Reading location - IP/workstation name: [email or web address]
[2020-01-10 17:30] VITALS: BP 110/82
== END 2020-01-10 17:25 | disposition home or self-care (01) ==
LOC: ER 15:18
DX: S90.31XA Contusion of right foot, initial encounter (principal); W20.8XXA Other cause of strike by thrown, projected or falling object, initial encounter; F17.200 Nicotine dependence, unspecified, uncomplicated
CPT/HCPCS: 99283

== ENCOUNTER 2020-02-14 12:44 | Emergency (ER) | payer BC ==
[2020-02-14 12:56] VITALS: BP 141/81
[2020-02-14] MEDS ORDERED: OXYCODONE-ACETAMINOPHEN 5-325 MG TABLET PO ONE (13:32)
[2020-02-14] MEDS ORDERED: ONDANSETRON 4 MG TAB.RAPDIS PO ONE (13:32)
--- NOTE | 2020-02-14 13:34 | ER Document Report ---
ED Medical Screen (RME) - General Chief Complaint: Abdominal Pain Stated Complaint: ABDOMINAL PAIN Time Seen by Provider: 02/14/20 13:31 Notes: 29-year-old male presents to ED for complaint of right upper quadrant abdominal pain started 630 this morning. He states he has a lot of nausea but no vomiting as yet. He states it is severe pain. He states he had a cholecystectomy October 27, 2019. He states it feels just like when he had his gallbladder pain. Patient is alert oriented respirations regular nonlabored speaking in full sentences. I have greeted and performed a rapid initial assessment of this patient. A comprehensive ED assessment and evaluation of the patient, analysis of test results and completion of medical decision making process will be conducted by an additional ED providers. TRAVEL OUTSIDE OF THE [place] IN LAST 30 DAYS: No - Related Data Allergies/Adverse Reactions: No Known Allergies Allergy (Verified 02/14/20 13:09) Past Medical History - Social History Chew tobacco use (# tins/day): No Frequency of alcohol use: None Drug Abuse: None - Past Medical History Cardiac Medical History: Denies: Hx Coronary Artery Disease, Hx Heart Attack, Hx Hypertension Pulmonary Medical History: Denies: Hx Asthma, Hx Bronchitis, Hx COPD, Hx Pneumonia Neurological Medical History: Denies: Hx Cerebrovascular Accident, Hx Seizures Renal/ Medical History: Denies: Hx Kidney Stones, Hx Peritoneal Dialysis Musculoskeltal Medical History: Denies Hx Arthritis Past Surgical History: Reports: Hx Bowel Surgery - pyloric stenosis repair 5 days old, Hx Herniorrhaphy - inguinal hernia repair remotely, Hx Open Heart Surgery - 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
[2020-02-14 14:09] LABS: ABSOLUTE LYMPHOCYTES (AUTO) 1.8 10^3/uL (0.5-4.7); ABSOLUTE MONOCYTES (AUTO) 0.6 10^3/uL (0.1-1.4); ABSOLUTE NEUT (AUTO) 6.1 10^3/uL (1.7-8.2); BASOPHILS % (AUTO) 0.3 % (0-2); EOSINOPHILS % (AUTO) 0.3 % (0-6); HEMATOCRIT 46.3 % (37.9-51.0); HEMOGLOBIN 16.1 g/dL (13.5-17.0); LYMPHOCYTES % (AUTO) 21.1 % (13-45); MEAN CORPUSCULAR HEMOGLOBIN 31.1 pg (27.0-33.4); MEAN CORPUSCULAR HGB CONC 34.8 g/dL (32.0-36.0); MEAN CORPUSCULAR VOLUME 89 fl (80-97); MONOCYTES % (AUTO) 6.6 % (3-13); PLATELET COUNT 358 10^3/uL (150-450); RED BLOOD COUNT 5.19 10^6/uL (4.35-5.55); RED CELL DISTRIBUTION WIDTH 13.3 % (11.5-14.0); SEGMENTED NEUTROPHILS % (AUTO) 71.7 % (42-78); TOTAL CELLS COUNTED % (AUTO) 100 %; WHITE BLOOD COUNT 8.4 10^3/uL (4.0-10.5)
[2020-02-14 14:13] LABS: APPEARANCE,URINE CLEAR; BILIRUBIN,URINE NEGATIVE (NEGATIVE); COLOR,URINE YELLOW; GLUCOSE, URINE NEGATIVE (NEGATIVE); KETONES,URINE NEGATIVE (NEGATIVE); LEUKOCYTE ESTERASE,URINE NEGATIVE (NEGATIVE); NITRITE,URINE NEGATIVE (NEGATIVE); PROTEIN,URINE 30 mg/dL (NEGATIVE); URINE SPECIFIC GRAVITY 1.015
[2020-02-14 14:27] LABS: ALBUMIN 4.8 g/dL (3.5-5.0); ALKALINE PHOSPHATASE 66 U/L (38-126); ANION GAP 9 (5-19); ASPARTATE AMINO TRANSFERASE 42 U/L (17-59); BILIRUBIN,TOTAL 0.7 mg/dL (0.2-1.3); BLOOD UREA NITROGEN 8 mg/dL (7-20); CALCIUM 9.8 mg/dL (8.4-10.2); CARBON DIOXIDE 28 mmol/L (22-30); CHLORIDE 102 mmol/L (98-107); GLUCOSE 93 mg/dL (75-110); POTASSIUM 4.3 mmol/L (3.6-5.0)
--- NOTE | 2020-02-14 14:30 | RADIOLOGY REPORT (SQ) ---
EXAM DESCRIPTION: U/S ABDOMEN LIMITED W/O DOP IMAGES COMPLETED DATE/TIME: 02/14/2020 2:13 pm REASON FOR STUDY: Right upper quadrant abdominal pain. gb 10/27/19 COMPARISON: 09/15/2019 CT and ultrasound imaging. TECHNIQUE: Dynamic and static grayscale images acquired of the abdomen and recorded on PACS. Additio nal selected color Doppler and spectral images recorded. LIMITATIONS: None. FINDINGS: PANCREAS: No masses. Visualized pancreatic duct normal caliber. LIVER: Hepatic steatosis. No focal mass. LIVER VASCULATURE: Normal directional flow of the main portal vein. The hepatic veins are not adequa tely evaluated. . GALLBLADDER: Surgically absent. ULTRASOUND-DETECTED TORRES'S SIGN: Not applicable. INTRAHEPATIC DUCTS AND COMMON DUCT: CBD and intrahepatic ducts normal caliber. No filling defects. INFERIOR VENA CAVA: Normal flow. AORTA: No aneurysm. RIGHT KIDNEY: Normal size. Normal echogenicity. No solid or suspicious masses. No hydronephrosis. No calcifications. PERITONEAL AND RIGHT PLEURAL SPACE: No ascites or effusions. OTHER: No other significant findings. IMPRESSION: The hepatic veins are not adequately evaluated. Hepatic steatosis. Normal sonographic appearance of the portal vein, aorta, and superior vena cava. Status post cholecystectomy. TECHNICAL DOCUMENTATION: JOB ID: [id number] 2010 [employer]- All Rights Reserved Reading location - IP/workstation name: [email or web address]
[2020-02-14] MEDS ORDERED: MORPHINE SULFATE 10 MG/ML INJ IV ONE (15:38)
[2020-02-14] MEDS ORDERED: NORMAL SALINE 1000 ML 1,000 ML IV ONE (15:43)
--- NOTE | 2020-02-14 15:43 | ER Document Report ---
ED GI/ - General Chief Complaint: Abdominal Pain Stated Complaint: ABDOMINAL PAIN Time Seen by Provider: 02/14/20 13:31 Primary Care Provider: JUAN ANTONIO ALMONTE MD [Primary Care Provider] - Follow up as needed Mode of Arrival: Ambulatory Information source: Patient Notes: 29-year-old male with no previous medical problems status post cholecystectomy 10/27/2019 presents to the emergency room with sudden onset of right-sided and right upper quadrant pain that started around 6 AM this morning. Complains of nausea no vomiting. Denies any bad food. No recent antibiotics. No meds at home for pain. No recent travel. No COVID-19 exposure. TRAVEL OUTSIDE OF THE [place] IN LAST 30 DAYS: No - Related Data Allergies/Adverse Reactions: No Known Allergies Allergy (Verified 02/14/20 13:09) Past Medical History - General Information source: Patient - Social History Smoking Status: Current Every Day Smoker Chew tobacco use (# tins/day): No Frequency of alcohol use: None Drug Abuse: None Family History: None - Past Medical History Cardiac Medical History: Denies: Hx Coronary Artery Disease, Hx Heart Attack, Hx Hypertension Pulmonary Medical History: Denies: Hx Asthma, Hx Bronchitis, Hx COPD, Hx Pneumonia Neurological Medical History: Denies: Hx Cerebrovascular Accident, Hx Seizures Renal/ Medical History: Denies: Hx Kidney Stones, Hx Peritoneal Dialysis Musculoskeletal Medical History: Denies Hx Arthritis Past Surgical History: Reports: Hx Bowel Surgery - 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 denies: Diarrhea, Vomiting, Constipation Musculoskeletal: No symptoms reported Skin: No symptoms reported Neurological/Psychological: No symptoms reported -: Yes All other systems reviewed and negative Physical Exam - Vital signs Vitals: Temp Pulse Resp BP Pulse Ox 98.7 F 88 16 141/81 H 100 02/14/20 12:55 02/14/20 12:55 02/14/20 12:55 02/14/20 12:55 02/14/20 12:55 - General General appearance: Appears well, Alert In distress: Mild - Respiratory Respiratory status: No respiratory distress Chest status: Nontender Breath sounds: Normal Chest palpation: Normal - Cardiovascular Rhythm: Regular Heart sounds: Normal auscultation Murmur: No - Abdominal Inspection: Normal Distension: No distension Bowel sounds: Normal Tenderness: Tender - Right-sided abdominal tenderness on palpation. No guarding, no rebound, Organomegaly: No organomegaly - Back Back: Normal, Nontender. No: CVA tenderness - Neurological Neuro grossly intact: Yes Cognition: Normal Orientation: AAOx4 Minnie Coma Scale Eye Opening: Spontaneous [place] Coma Scale Verbal: Oriented [place] Coma Scale Motor: Obeys Commands [place] Coma Scale Total: 15 Speech: Normal Motor strength normal: LUE, RUE, LLE, RLE Sensory: Normal - Skin Skin Temperature: Warm Skin Moisture: Dry Skin Color: Normal Course - Re-evaluation Re-evalutation: 02/14/20 15:38 Reviewed lab and ultrasound results with patient. Patient still complaining of significant right upper quadrant and right sided abdominal pain unrelieved with the p.o. Percocet. States nausea has improved. Orders were placed for IV, CT abdomen pelvis with IV contrast, additional pain medication and reevaluate. 02/14/20 18:53 Patient is resting comfortably he is currently pain-free on exam. All test results were reviewed with patient and family. Counseled on outpatient follow- up with primary care physician if not improving in 2 to 3 days. Return to the emergency room for any new or worsening symptoms. Patient was given strict return to the emergency room guidelines. Return for any new or worsening sym ptoms. All questions were answered. Patient verbalized understanding and agrees with plan of care. 02/14/20 19:10 Nurse went to discharge the patient the patient was complaining of worsening abdominal pain however patient was pain-free on exam. Bentyl was ordered for patient. 02/14/20 19:30 Patient is now resting comfortably pain has decreased. Feels well enough to be discharged home. - Vital Signs Vital signs: Temp Pulse Resp BP Pulse Ox 97.8 F 88 16 141/81 H 100 02/14/20 19:31 02/14/20 12:55 02/14/20 12:55 02/14/20 12:55 02/14/20 12:55 - Laboratory Result Diagrams: 02/14/20 13:37 02/14/20 13:37 Laboratory results interpreted by me: 02/14/20 13:37 Urine Protein 30 H Urine Urobilinogen 2.0 H Discharge - Discharge Clinical Impression: Abdominal pain of unknown etiology Condition: Stable Disposition: HOME, SELF-CARE Instructions: Abdominal Pain ([facility]) Additional Instructions: Independence diet. Outpatient follow-up with primary care physician if not proving in 2 to 3 days. Return to the emergency room for any new or worsening symptoms. Referrals: JUAN ANTONIO ALMONTE MD [Primary Care Provider] - Follow up as needed
--- NOTE | 2020-02-14 18:35 | RADIOLOGY REPORT (SQ) ---
EXAM DESCRIPTION: CT ABD/PELVIS WITH IV ONLY IMAGES COMPLETED DATE/TIME: 02/14/2020 6:13 pm REASON FOR STUDY: abdominal pain COMPARISON: 09/15/2019 TECHNIQUE: CT scan of the abdomen and pelvis performed using helical scanning technique with dynamic intravenous contrast injection. No oral contrast. Images reviewed with lung, soft tissue, and bone w indows. Reconstructed coronal and sagittal MPR images reviewed. Delayed images for evaluation of the urinary system also acquired. All images stored on PACS. All CT scanners at this facility use dose modulation, iterative reconstruction, and/or weight based d osing when appropriate to reduce radiation dose to as low as reasonably achievable (ALARA). [facility]: Dose Right [facility]: CareDose [facility]: Dose Right [facility]: Teradose 4D [facility]: Trupanion CONTRAST TYPE AND DOSE: contrast/concentration: Isovue mmol/ml; Total Contrast Delivered: 99.0 ml; Total Saline Delivered: 54.7 ml RENAL FUNCTION: None required. The patient is less than 50 years old. RADIATION DOSE: CT Rad equipment meets quality standard of care and radiation dose reduction techniq ues were employed. CTDIvol: 13.0 - 17.5 mGy. DLP: 1456 mGy-cm.. LIMITATIONS: None. FINDINGS: LOWER CHEST: No significant findings. LIVER: Normal size. No enhancing masses. No dilated ducts. SPLEEN: Normal size. No focal lesions. PANCREAS: No masses identified. No significant calcifications. No adjacent inflammation or peripancre atic fluid collections. Pancreatic duct not dilated. GALLBLADDER: Surgically absent. ADRENAL GLANDS: No significant masses. RIGHT KIDNEY AND URETER: No cysts identified. No solid masses identified. No calcified stones. No hyd ronephrosis or hydroureter. LEFT KIDNEY AND URETER: No cysts identified. No solid masses identified. No calcified stones. No hydr onephrosis or hydroureter. AORTA AND VESSELS: No aneurysm. No dissection. Renal arteries, SMA, celiac without significant stenos is. RETROPERITONEUM: No bulky retroperitoneal adenopathy. BOWEL AND PERITONEAL CAVITY: No obstruction or inflammatory changes. No free fluid. APPENDIX: Normal. PELVIS: No mass. No free fluid. Unremarkable bladder. ABDOMINAL WALL: No masses. No hernias. BONES: No acute findings. 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 OTHER: No other significant finding. IMPRESSION: NO ACUTE FINDINGS IN THE ABDOMEN OR PELVIS ON CT SCAN WITH IV CONTRAST. TECHNICAL DOCUMENTATION: JOB ID: [id number] [id number] Quality ID # [id number]: Final reports with documentation of one or more dose reduction techniques (e.g., Au tomated exposure control, adjustment of the mA and/or kV according to patient size, use of iterative reconstruction technique) 2010 [employer]- All Rights Reserved Reading location - IP/workstation name: [email or web address]
[2020-02-14] MEDS ORDERED: DICYCLOMINE HCL INJ 20 MG/2 ML AMPULE IM ONE (19:10)
== END 2020-02-14 19:31 | disposition home or self-care (01) ==
LOC: ER 12:44
DX: R10.9 Unspecified abdominal pain (principal); R10.11 Right upper quadrant pain; R11.0 Nausea; Z90.49 Acquired absence of other specified parts of digestive tract; F17.200 Nicotine dependence, unspecified, uncomplicated
CPT/HCPCS: 99285; 96372; 96361; 96374; 36415; 83690; 85025; 80053; 81001; 76705; 74177; J0500; S0119; J2270; J7030